=== PATIENT | male | born 1945 | race Two or more races ===

== ENCOUNTER 2017-04-17 06:54 | Inpatient (IN) | payer OTHER ==
[2017-04-14 11:15] VITALS: BMI 29.3
[2017-04-17] MEDS ORDERED: HEPARIN NA (PORCINE) 5,000 UNITS/ML 1ML VIAL ONE (07:19)
[2017-04-17] MEDS ORDERED: THROMBIN (BOVINE) 5,000 UNIT VIAL TP ONE ×2 (07:20→12:08)
[2017-04-17] MEDS ORDERED: PROPOFOL 20 ML ONE ×11 (07:52→12:06)
[2017-04-17] MEDS ORDERED: LIDOCAINE HCL/PF 2% SDV 5ML VIAL ONE (07:52)
[2017-04-17] MEDS ORDERED: fentaNYL CITRATE 250 MCG/5 ML VIAL ONE ×2 (07:52→09:16)
[2017-04-17] MEDS ORDERED: SUCCINYLCHOLINE CHLORIDE 200 MG/10 ML VIAL ONE (07:52)
[2017-04-17] MEDS ORDERED: ROCURONIUM BROMIDE 50 MG/5 ML VIAL ONE (07:53)
[2017-04-17] MEDS ORDERED: MIDAZOLAM HCL 2 MG/2 ML SINGLE DOSE VIAL ONE ×3 (07:53)
[2017-04-17] MEDS ORDERED: DESFLURANE GAS 240 ML BOTTLE IH ONE (09:39)
[2017-04-17] MEDS ORDERED: ceFAZolin SODIUM 1 GM VIAL ONE ×2 (09:48→13:30)
[2017-04-17] MEDS ORDERED: VANCOMYCIN 1,000 MG VIAL (RESTRICTED TO ID ONLY) ONE (09:48)
[2017-04-17] MEDS ORDERED: DEXAMETHASONE SOD PHOSPHATE 4 MG/1 ML VIAL ONE (09:48)
[2017-04-17] MEDS ORDERED: ONDANSETRON 4 MG/2 ML VIAL ONE (09:48)
[2017-04-17] MEDS ORDERED: ceFAZolin SODIUM 1 GM VIAL IVPB ONE (09:51)
[2017-04-17] MEDS ORDERED: VANCOMYCIN 1,000 MG VIAL (RESTRICTED TO ID ONLY) IVPB ONE (09:51)
[2017-04-17] MEDS ORDERED: ePHEDrine SULFATE 50 MG/1 ML AMPULE ONE (09:52)
[2017-04-17] MEDS ORDERED: FUROSEMIDE 40 MG/4 ML INJECTABLE VIAL ONE (13:03)
[2017-04-17] MEDS ORDERED: ONDANSETRON 4 MG/2 ML VIAL IVPUSH PRN ×2 (14:37→15:02)
[2017-04-17] MEDS ORDERED: LACTATED RINGERS SOLUTION 1,000 ML IV SCH (14:45)
--- NOTE | 2017-04-17 14:47 | PN ---
Progress Note (short form) - Note Progress Note: 71M s/p L4-S1 laminectomies & posterior decompression, L4/L5 &L5/S1 PLIF, L4-S1 PISF w/incidental durotomy POD #0. -Strict bed rest x 48 hrs post-op; HOB at 0 degrees. -Pain control. -Mechanical DVT PPx. only: MAXIME's, SCD's. -Incentive spirometry. -PT/OT/Rehab, OOB. -WBAT B/L UE & LE. -De Paz care; d/c de paz when ambulating. -NPO until flatus. -Rebecca-op antibiotics: ANCEF. -Admit to ICU. -Care per medical hospitalist team when out of ICU. -Will follow. César Whittaker MD (Orthopaedic Surgery).
[2017-04-17] MEDS ORDERED: HYDROmorphone HCL CARPU-JECT 1 MG/1 ML DISP.SYRIN IVPUSH PRN (15:02)
[2017-04-17] MEDS ORDERED: HYDROmorphone *PCA* 6MG/30ML DISP.SYRIN PCA ONE (15:39)
[2017-04-17] MEDS: HYDROmorphone *PCA* 6MG/30ML DISP.SYRIN PCA SCH ×2 (15:45→21:43)
[2017-04-17] MEDS: HYDROmorphone *PCA* 10MG/50ML DISP.SYRIN PCA SCH ×2 (15:45→21:40)
[2017-04-17] MEDS: ACETAMINOPHEN 1000 MG/100 ML VIAL (NON FORMULARY) IVPB SCH ×3 (15:50→22:40)
[2017-04-17] MEDS ORDERED: HYDROmorphone HCL CARPU-JECT 4 MG/1 ML DISP.SYRIN ONE (16:47)
[2017-04-17] MEDS ORDERED: ceFAZolin 2 GRAM PREMIX BAG IVPB SCH (18:00)
[2017-04-17] MEDS: CEFAZOLIN 2 GM/D5W 2 GM/50 ML ML IVPB SCH (18:37)
[2017-04-17] MEDS: LACTATED RINGERS SOLUTION 1,000 ML IV SCH (18:38)
--- NOTE | 2017-04-18 00:15 | CONSULT ---
Consult Consult Specialty:: Pulm Critical Care Referred by:: Dr. Whittaker Reason for Consultation:: s/p laminectomy - History of Present Illness Chief Complaint: lower back pain History of Present Illness: This is a 71 yo male w/ pmhx of spinal stenosis, HTN, HL, BPH, depression, Hyperparathyroidism s/p hyperparathyroidectomy(09/17/15), glaucoma and cataracts who is s/p L4-S1 laminectomies & posterior decompression, L4/L5 &L5/S1 PLIF, L4- S1 PISF w/incidental durotomy POD #0 (04/17/17) by Dr. Whittaker given h/o chronic lower back pain, neurogenic claudication and radiculopathy of b/l LEs, now admitted to ICU for further monitoring and management s/p procedure - History Source History Provided By: Patient, Medical Record Limitations to Obtaining History: No Limitations - Past Medical History [employer]: Yes: Other (chronic lumbar stenosis, neurogenic claudication, b/l LE radiculopathy). No: Alzheimer's, CVA, Dementia, Migraine, Multiple Sclerosis, Peripheral Neuropathy, Parkinson's, Seizure, Syncope, TIA, Vertigo Cardio/Vascular: Yes: HTN, Hyperlipdemia Pulmonary: Yes: Sleep Apnea Gastrointestinal: No: Ascites, Cancer, Constipation, Crohn's Disease, Diverticulitis, Diverticulosis, Esophageal Varices, Gastritis, GERD, GI Bleed, Hemorrhoids, Hiatal Hernia, Inflamatory Bowel Disease, Irritable Bowel Disease, Pancreatitis, Peptic Ulcer Disease, Ulcerative Colitis, Other Hepatobiliary: No: Cirrhosis, Cholelithiasis, Cholecystitis, Choledocholithiasis , Hepatitis A, Hepatitis B, Hepatitis C, Other Renal/: Yes: BPH. No: Renal Failure, Renal Inusuff, Cancer, Hematuria, Hemodialysis, Neurogenic Bladder, Renal Calculi, UTI, Other Heme/Onc: No: Anemia, B12 Deficiency, Bleeding Disorder, Cancer, Current Chemotherapy, Current Radiation Therapy, Hemochromatosis, Hypercoaguable State, Myeloproliferative Synd, Sickle Cell Disease, Sickle Cell Trait, Thrombocytopenia, Other Infectious Disease: No: AIDS, C-Diff, Herpes Zoster, HIV, MRSA, STD's, Tuberculosis, VREF, Other Psych: Yes: Depression. No: Addictions, Anxiety, Bipolar, Panic, Psychosis, Schizophrenia, Other Musculoskeletal: Yes: Chronic low back pain, Other (neurogenic claudication, radiculopathy) Rheumatology: No: Fibromyalgia, Gout, Lupus, Rheumatoid Arthritis, Sarcoidosis, Vasculitis, Other ENT: No: Allergic Rhinitis, Sinusitis, Other Endocrine: Yes: Hyperparathyroidism Dermatology: No: Basal Cell, Cellulitis, Eczema, Melanoma, Psoriasis, Squamous Cell, Other Additional Medical History: glaucoma, cataract - Past Surgical History Additional Surgical History: s/p parathyroidectomy - Alcohol/Substance Use Hx Alcohol Use: No History of Substance Use: reports: None - Smoking History Smoking history: Never smoked Have you smoked in the past 12 months: No - Social History Usual Living Arrangement: With Spouse ADL: Independent Occupation: retired History of Recent Travel: No Home Medications - Allergies Allergies/Adverse Reactions: Allergies Allergy/AdvReac Type Severity Reaction Status Date / Time oxycodone Allergy Intermediate ITCHY ALL Verified 04/14/17 11:15 OVER BODY - Home Medications Home Medications: Ambulatory Orders Finasteride 5 mg PO DAILY 04/14/17 Losartan Potassium 100 mg PO DAILY 04/14/17 Naproxen [Naprosyn] 500 mg PO PRN 04/14/17 Nifedipine [Procardia Xl] 90 mg PO DAILY 04/14/17 Rosuvastatin Calcium [Crestor] 10 mg PO DAILY 04/14/17 Family Disease History - Family Disease History Family History: Unremarkable Review of Systems - Review of Systems Constitutional: reports: No Symptoms Eyes: reports: No Symptoms HENT: reports: No Symptoms Neck: reports: No Symptoms Cardiovascular: reports: No Symptoms Respiratory: reports: No Symptoms Gastrointestinal: reports: No Symptoms Genitourinary: reports: No Symptoms Breasts: reports: No Symptoms Reported Musculoskeletal: reports: Back Pain Integumentary: reports: No Symptoms Neurological: reports: No Symptoms Endocrine: reports: No Symptoms Hematology/Lymphatic: reports: No Symptoms Psychiatric: reports: No Symptoms Pain Intensity: 0 Physical Exam Vital Signs: Vital Signs Temperature 98.9 F 04/17/17 22:00 Pulse Rate 99 H 04/17/17 22:00 Respiratory Rate 18 04/17/17 22:00 Blood Pressure 144/70 04/17/17 22:00 O2 Sat by Pulse Oximetry (%) 100 04/17/17 23:35 Constitutional: Yes: Well Nourished, No Distress, Calm Eyes: Yes: Conjunctiva Clear, EOM Intact, Cataracts HENT: Yes: WNL, Atraumatic, Normocephalic Neck: Yes: WNL, Supple, Trachea Midline Cardiovascular: Yes: WNL, Regular Rate and Rhythm Respiratory: Yes: WNL, Regular, CTA Bilaterally, On Nasal O2 Gastrointestinal: Yes: WNL, Normal Bowel Sounds, Soft ...Rectal Exam: Yes: Deferred Renal/: Yes: WNL, Joshua Present Breast(s): Yes: WNL Musculoskeletal: Yes: Back Pain Extremities: Yes: WNL Edema: No Peripheral Pulses WNL: Yes Integumentary: Yes: WNL Wound/Incision: Yes: Clean/Dry Neurological: Yes: WNL, Alert, Oriented ...Motor Strength: WNL Psychiatric: Yes: WNL Imaging - Results EKG: Report Reviewed (pre-op EKG NSR, no changes) Problem List - Problems (1) S/P laminectomy Code(s): Z98.890 - OTHER SPECIFIED POSTPROCEDURAL STATES (2) Glaucoma Code(s): H40.9 - UNSPECIFIED GLAUCOMA Qualifiers: Primary angle closure glaucoma type: unspecified type (3) HTN (hypertension) Code(s): I10 - ESSENTIAL (PRIMARY) HYPERTENSION Qualifiers: Hypertension type: unspecified Qualified Code(s): I10 - Essential (primary ) hypertension (4) Hyperlipemia Code(s): E78.5 - HYPERLIPIDEMIA, UNSPECIFIED (5) Chronic back pain Code(s): M54.9 - DORSALGIA, UNSPECIFIED; G89.29 - OTHER CHRONIC PAIN Qualifiers: Back pain location: low back pain Back pain laterality: bilateral Sciatica presence: unspecified whether sciatica present Qualified Code(s): M54.5 - Low back pain; G89.29 - Other chronic pain; G89.29 - Other chronic pain (6) Sleep apnea syndrome Code(s): G47.30 - SLEEP APNEA, UNSPECIFIED Assessment/Plan This is a 71 yo male w/ pmhx of spinal stenosis, HTN, HL, BPH, depression, Hyperparathyroidism s/p hyperparathyroidectomy(09/17/15), glaucoma and cataracts who is s/p L4-S1 laminectomies & posterior decompression, L4/L5 &L5/S1 PLIF, L4- S1 PISF w/incidental durotomy POD #0 (04/17/17) by Dr. Whittaker given chronic lower back pain, neurogenic claudication and radiculopathy of b/l LEs, now admitted to ICU for further monitoring and management s/p procedure. -Strict bed rest x 48 hrs post-op; keep HOB flat -Pain management with Dilaudid COAL UNLOADER, and IVP PRN -WBAT B/L UE & LE -NPO until flatus -Cont Rebecca-op abx Ancef -supplemental O2 -CPAP at night for sleep apnea -IS -TEDs and SCDs -PT/OT/Rehab, OOB -d/c baldev when ambulating -Cont home nifedipine for HTN Stacia Headley, ACNP-BC Pulm Critical Care Consult
[2017-04-18] MEDS: CEFAZOLIN 2 GM/D5W 2 GM/50 ML ML IVPB SCH ×2 (02:00→10:39)
[2017-04-18] MEDS: ACETAMINOPHEN 1000 MG/100 ML VIAL (NON FORMULARY) IVPB SCH (06:07)
--- NOTE | 2017-04-18 06:22 | OP ---
DATE OF OPERATION: 04/17/2017 SURGEON: César Whittaker MD CO-SURGEON: Benitez Whittaker MD PREOPERATIVE DIAGNOSES: 1. Spinal stenosis, L4-5. 2. Spondylolisthesis, L4-5 with segmental instability. POSTOPERATIVE DIAGNOSES: 1. Spinal stenosis, L4-5. 2. Spondylolisthesis, L4-5 with segmental instability. OPERATION PERFORMED: 1. Laminectomy with undercutting facetectomy, L4 and L5. 2. Incidental dural tear and repair at the L4-5 level. 3. Partial corpectomy, L4. 4. Posterior lumbar interbody fusion with cage, L4-5, L5-S1. 5. Pedicle screw instrumentation, L4, L5, S1. 6. Posterolateral arthrodesis, L4, L5, S1. 7. Bone marrow aspirate concentrate with autologous bone graft and allograft expansion. 8. Complex wound closure. This measured 15 cm. ANESTHESIA: General. ANTIBIOTICS GIVEN: Kefzol 2 g, vancomycin 1 g preoperative. OPERATION DETAILS: The patient correctly identified, brought to the operating room, placed prone on gel pads. All areas were padded. The pelvis was kept in as little retroversion as possible; that is that the lumbosacral junction, the lordosis was maintained. Skin was prepped in routine manner with Betadine scrub solution and wiped off with alcohol. DuraPrep applied. A midline incision was utilized after window draping of the wound area. A preoperative assessment where the skin incision needed to be made was performed. This with lateral fluoroscopic x-ray and Hurley holding exactly the levels for dissection. The skin was from the tip of the spinous process of L3 right to S1. Subperiosteal dissection performed, exposing the spinous process and lamina over the facet joints of the transverse plexus of the left- and right-hand side. Verification of the levels with two Kochers placed into the interspinous process at L3-4 as well as L5-S1. With that, all the bone of L4-5 was removed. This was hypertrophic, thickened bone from massive osteoarthritis including massive facet hypertrophy. All bone was removed. The dura remained well intact throughout this part of the dissection. The disk at L5-S1 was identified on the right-hand side using bipolar set at 10 mA. The epidural veins were diathermied. The dura and theca retracted from right to left. An annulotomy performed with an 11 blade. The disk was then shaved appropriately, this with the appropriate yanira as well as use of serrated curettes combined with pituitary rongeurs. All disk material was removed out of L5-S1. Shaving was to size 11, and a size 12 cage was inserted; this was a porous-coated cage and device filled with bone graft. The interbody space L5-S1 was packed with bone graft, and the cage was then seated. The cage itself was packed with bone graft. We moved up proximally to L4-5. It was impossible to gain entrance to L4-5; that is the cage, and as a partial corpectomy was performed. The theca was gently retracted. The dura was adherent to the anterior structures, and these adhesions were broken with a slow, meticulous trimming of these with using a [place] as well as Metzenbaum scissors to free these adhesions as we went along. The theca was relatively free. The corpectomy enabled us access to the actual disk. This was a partial corpectomy and slanted chamfer onto the body of L4. The disk was entered with a shaver. Shaving was to size 10, and a size 11 cage was also inserted. The interspace was packed with bone graft. This was all the bone that was harvested from the posterior elements, that is from the laminectomy, all removed in a Midas Hans mill as was at L5-S1. Solid fixation achieved. Verification of the cages revealed no complications both at L4-5 as well as L5-S1. It was at the time of trimming out some of the annulus that in pulling down on the tissues, this was transmitted to the back of the theca where there was scar adherence of the dura onto the posterior elements, and a small tear occurred. This was anterior. The only way to repair this was a transthecal approach. I elected not to do this because of the concern of arachnoiditis, but we did manage to get this sealed up with some Surgicel combined with fibrin glue that was sandwiched between the posterior longitudinal ligament and the anterior aspect of the theca. No drainage was noted once this had been performed. The pedicles of L4, L5, S1 were entered using anatomical guidelines as well as a lateral fluoroscopic x-ray. The screws directed appropriately. Each screw measured well above the safe area, that is well above 17 mA for one screw, and the rest were all well above 20. Two 65-mm rods were contoured and placed into the screw heads, and the caps tightened appropriately, followed with a torque wrench device. A crosslink applied. The wounds were thoroughly lavaged. Bone graft from the autologous bone as well as mixed with allograft. This was all mixed with stem cells that were harvested from the posterior ilium as a bone marrow aspirate concentrate and packed into the interspace at L4, L5, S1, both left- and right-hand side. The wounds were thoroughly lavaged. No bone was left on the theca. The dura was inspected again, found to be normal, bulging, and no leakage noted. On that basis, we then went ahead and elected to close the tissues. The muscle was gently trimmed from necrotic muscle. This was minor, using the retractors. The wounds were closed as follows: Muscle 1 Vicryl, fascia 1 Vicryl, subcutaneous 1 and 2-0 Vicryl, skin 3-0 Monocryl with Steri-Strips. Major concern here remains with regard to the dura, and he will be observed and followed in the ICU and kept 72 hours bedrest with foot elevation to decrease the pressure in the thecal sac caudally. MD CISCO Cavanaugh/[id number]
[2017-04-18 06:51] LABS: ANION GAP 8 (8-16); BLOOD UREA NITROGEN 19 mg/dL (7-18); CALCIUM 7.9 mg/dL (8.5-10.1); CHLORIDE 101 mmol/L (98-107); CO2 32 mmol/L (21-32); GLUCOSE,RANDOM 120 mg/dL (74-106); POTASSIUM 3.7 mmol/L (3.5-5.1); SODIUM 141 mmol/L (136-145)
[2017-04-18 07:53] LABS: HEMATOCRIT 36.2 % (35.4-49); HEMOGLOBIN 11.9 GM/dL (11.7-16.9); MCH 30.7 pg (25.7-33.7); MCHC 32.8 g/dl (32.0-35.9); MEAN CELL VOLUME 93.8 fl (80-96); PLATELET COUNT 237 K/MM3 (134-434); RBC 3.86 M/mm3 (4.00-5.60); RDW 15.3 % (11.9-15.9); WHITE BLOOD COUNT 19.6 K/mm3 (4.0-10.0)
--- NOTE | 2017-04-18 08:07 | PN ---
Progress Note, Physician History of Present Illness: This is a 71 yo male h/o spinal stenosis, HTN, HL, BPH, depression, Hyperparathyroidism s/p hyperparathyroidectomy(09/17/15), glaucoma and cataracts who is s/p L4-S1 laminectomies & posterior decompression, L4/L5 &L5/S1 PLIF, L4- S1 PISF w/incidental durotomy POD #0 (04/17/17) by Dr. Whittaker given h/o chronic lower back pain, neurogenic claudication and radiculopathy of BLE, now admitted to ICU for further monitoring and management s/p procedure 24 Hour Events Patient was on ventimask with desaturations overnight while sleeping laying flat. CPAP ordered with improvement. Patient with indwelling Joshua, PIV, on Joshua to gravity,adequate urine Skin warm,dry,dressing to back intact,SCD and TEDS in place Subjective Intake/Output In: 3475cc Out: 1900cc Net: 1575cc BM: None reported - Current Medication List Current Medications: Active Medications Finasteride (Proscar -) 5 mg PO DAILY JARROD Hydromorphone HCl (Dilaudid Injection -) 0.5 mg IVPUSH [id number] PRN PRN Reason: PAIN-PACU ORDER X 4 DOSES ONLY Hydromorphone HCl (Dilaudid Master Rigger -) 6 mg CUPROUS CHLORIDE OPERATOR CUPROUS CHLORIDE OPERATOR JARROD PRN Reason: Protocol Stop: 04/20/17 15:03 Last Admin: 04/17/17 21:43 Dose: Not Given Lactated Ringer's (Lactated Ringers Solution) 1,000 mls @ 125 mls/hr IV ASDIR [facility] Last Admin: 04/17/17 18:38 Dose: 125 mls/hr Cefazolin Sodium/Dextrose (Ancef 2 Gm Premixed Ivpb -) 2 gm in 50 mls @ 100 mls /hr IVPB Q8H [facility] Stop: 04/18/17 10:29 Last Admin: 04/18/17 02:00 Dose: 100 mls/hr Losartan Potassium (Cozaar -) 100 mg PO DAILY JARROD Nifedipine (Procardia Xl -) 90 mg PO DAILY JARROD Ondansetron HCl (Zofran Injection) 4 mg IVPUSH Q6H PRN PRN Reason: NAUSEA AND/OR VOMITING - Objective Vital Signs: Vital Signs Temperature 98.4 F 04/18/17 06:12 Pulse Rate 87 04/18/17 07:31 Respiratory Rate 16 04/18/17 07:31 Blood Pressure 126/68 04/18/17 07:31 O2 Sat by Pulse Oximetry (%) 98 04/18/17 05:35 Constitutional: Yes: Well Nourished, No Distress, Calm, Other (laying flat in bed and attempting to stay very still, moans in pain with repositioning, Monegasque -speaking, answering questions appropriately) Eyes: Yes: WNL, Conjunctiva Clear, EOM Intact, Other (mild exophthalmos stated unchanged from baseline) HENT: Yes: WNL, Atraumatic, Normocephalic Neck: Yes: WNL, Supple, Trachea Midline Cardiovascular: Yes: WNL, Regular Rate and Rhythm Respiratory: Yes: WNL, Regular, CTA Bilaterally Gastrointestinal: Yes: WNL, Normal Bowel Sounds, Soft Genitourinary: Yes: WNL, Joshua Present Musculoskeletal: Yes: Back Pain Extremities: Yes: Other (mild right knee tenderness to palpation stated chronic) . No: Calf Tenderness, Cold, Cool, Cyanosis Edema: No Peripheral Pulses: Left Doralis Pedis: 2+, Right Dorsalis Pedis: 2+ Integumentary: Yes: WNL. No: Erythema, Jaundice Neurological: Yes: WNL, Alert, Oriented ...Motor Strength: WNL Psychiatric: Yes: WNL, Alert, Oriented Labs: CBC, BMP 04/18/17 05:47 04/18/17 05:47 Assessment/Plan This is a 71 yo male with h/o of lumbar spinal stenosis, neurogenic claudication , BLE radiculopathy, HTN, HLD, BPH, depression, hyperparathyroidism s/p hyperparathyroidectomy (09/17/15), YAEL on CPAP, glaucoma, cataracts, and depression who is s/p L4-S1 laminectomies & posterior decompression, L4/L5 & L5/ S1 PLIF, L4-S1 PISF w/incidental durotomy POD #1 (04/17/17) by Dr. Whittaker. Given Ancef perioperatively. NEURO #S/P Lumbar laminectomy, posterior decompression -Strict bedrest with HOB flat until 48 hrs after surgery -Dilaudid CUPROUS CHLORIDE OPERATOR, IVP prn -Continue perioperative Ancef -Continue Joshua until ambulatory -WBAT BLE and BUE after bedrest period CARDIOLOGY #HTN -Continue home nifedipine, losartan #HLD RESPIRATORY #Obstructive Sleep Apnea. Patient seen with apnea when observed sleeping -CPAP at night -Formal sleep study -Supplemental O2 FEN/GI -NPO until flatus -IVF (LR) at 125 cc/hr PPX -MAXIME's, SCD's. -Incentive spirometry. -PT/OT/Rehab, OOB. Lines/Tubes/Drains -Joshua: placed 04/17 -PIV: placed 04/17
--- NOTE | 2017-04-18 08:10 | PN ---
Progress Note, Physician Chief Complaint: Pt is day #1 s/p L4-S2 PLIF - Current Medication List Current Medications: Active Medications Finasteride (Proscar -) 5 mg PO DAILY JARROD Hydromorphone HCl (Dilaudid Injection -) 0.5 mg IVPUSH [id number] PRN PRN Reason: PAIN-PACU ORDER X 4 DOSES ONLY Hydromorphone HCl (Dilaudid Group Segment Consultant -) 6 mg PODIATRY DOCTOR PODIATRY DOCTOR JARROD PRN Reason: Protocol Stop: 04/20/17 15:03 Last Admin: 04/17/17 21:43 Dose: Not Given Lactated Ringer's (Lactated Ringers Solution) 1,000 mls @ 125 mls/hr IV ASDIR [facility] Last Admin: 04/17/17 18:38 Dose: 125 mls/hr Cefazolin Sodium/Dextrose (Ancef 2 Gm Premixed Ivpb -) 2 gm in 50 mls @ 100 mls /hr IVPB Q8H [facility] Stop: 04/18/17 10:29 Last Admin: 04/18/17 02:00 Dose: 100 mls/hr Losartan Potassium (Cozaar -) 100 mg PO DAILY JARROD Nifedipine (Procardia Xl -) 90 mg PO DAILY JARROD Ondansetron HCl (Zofran Injection) 4 mg IVPUSH Q6H PRN PRN Reason: NAUSEA AND/OR VOMITING - Objective Vital Signs: Vital Signs Temperature 98.4 F 04/18/17 06:12 Pulse Rate 87 04/18/17 07:31 Respiratory Rate 16 04/18/17 07:31 Blood Pressure 126/68 04/18/17 07:31 O2 Sat by Pulse Oximetry (%) 98 04/18/17 05:35 Labs: CBC, BMP 04/18/17 05:47 04/18/17 05:47 Assessment/Plan Pt is resting in bed comfortably. He has pain which is tolerable when he uses his PODIATRY DOCTOR. Will continue with PODIATRY DOCTOR at current settings for now
[2017-04-18] MEDS ORDERED: LOSARTAN POTASSIUM 100 MG TABLET PO SCH (10:00)
[2017-04-18] MEDS ORDERED: PT OWN MED DRAWER 7, Y5N ONE (10:27)
[2017-04-18] MEDS: FINASTERIDE 5 MG TABLET (FP) PO SCH (10:38)
[2017-04-18] MEDS: LOSARTAN POTASSIUM 50 MG TABLET (FP) PO SCH (10:39)
[2017-04-18] MEDS: NIFEdipine E.R. 90 MG TABLET (FP) PO SCH (10:39)
--- NOTE | 2017-04-18 12:57 | EKG ---
Test Reason : Blood Pressure : / mmHG Vent. Rate : 094 BPM Atrial Rate : 094 BPM P-R Int : 206 ms QRS Dur : 096 ms QT Int : 356 ms P-R-T Axes : 067 004 101 degrees QTc Int : 445 ms SINUS RHYTHM WITH OCCASIONAL PREMATURE VENTRICULAR COMPLEXES T WAVE ABNORMALITY, CONSIDER LATERAL ISCHEMIA ABNORMAL ECG Confirmed by Lemuel Guzman MD ([id number]) on 04/18/2017 12:57:06 PM Referred By: César Whittaker Confirmed By:Lemuel Guzman MD
[2017-04-18] MEDS: LACTATED RINGERS SOLUTION 1,000 ML IV SCH (22:04)
[2017-04-18] MEDS: HYDROmorphone *PCA* 6MG/30ML DISP.SYRIN PCA SCH (22:05)
--- NOTE | 2017-04-19 03:42 | PN ---
Progress Note (short form) - Note Progress Note: Pt. seen & examined 04/18/2017 at 7pm. 71M s/p L4-S1 laminectomies & posterior decompression, L4/L5 &L5/S1 PLIF, L4-S1 PISF w/incidental durotomy POD #1. Pain well controlled. (-) Headaches, chest pain, shortness of breath, nausea, vomiting, chills, & sweats. (+) De Paz; (-) Flatus; (-) BM. All labs & vitals reviewed. Apyrexia. PE: AAO x 3, NAD. Back: Wound, dressing C/D/I. B/L LE sensorimotor status at baseline. 71M s/p L4-S1 laminectomies & posterior decompression, L4/L5 &L5/S1 PLIF, L4-S1 PISF w/incidental durotomy POD #1. -Strict bed rest x 48 hrs post-op; HOB at 0 degrees. -Pain control. -Mechanical DVT PPx. only: MAXIME's, SCD's. -Incentive spirometry. -De Paz care; d/c de paz when ambulating. -NPO until flatus. -Care per ICU team; care per medical hospitalist team when out of ICU. -Will follow. César Whittaker MD (Orthopaedic Surgery).
[2017-04-19 07:05] LABS: HEMATOCRIT 35.6 % (35.4-49); HEMOGLOBIN 11.6 GM/dL (11.7-16.9); MCH 30.4 pg (25.7-33.7); MCHC 32.6 g/dl (32.0-35.9); MEAN CELL VOLUME 93.4 fl (80-96); PLATELET COUNT 205 K/MM3 (134-434); RBC 3.81 M/mm3 (4.00-5.60); RDW 15.3 % (11.9-15.9); WHITE BLOOD COUNT 22.4 K/mm3 (4.0-10.0)
[2017-04-19 07:59] LABS: CHLORIDE 101 mmol/L (98-107); POTASSIUM 3.9 mmol/L (3.5-5.1); SODIUM 141 mmol/L (136-145)
[2017-04-19 08:07] LABS: ALBUMIN 2.9 g/dl (3.4-5.0); ALK PHOS 49 U/L (45-117); ANION GAP 8 (8-16); BILIRUBIN,TOTAL 0.6 mg/dL (0.2-1.0); BLOOD UREA NITROGEN 15 mg/dL (7-18); CALCIUM 7.3 mg/dL (8.5-10.1); CO2 32 mmol/L (21-32); CREATININE 0.8 mg/dL (0.7-1.3); GLUCOSE,RANDOM 103 mg/dL (74-106); MAGNESIUM 2.2 mg/dL (1.8-2.4); PHOSPHOROUS 2.6 mg/dL (2.5-4.9); SGOT/AST 78 U/L (15-37); SGPT/ALT 24 U/L (12-78); TOT PROT 6.1 g/dl (6.4-8.2)
[2017-04-19] MEDS ORDERED: PT OWN MED DRAWER 7, Y5N ONE (09:34)
[2017-04-19] MEDS: LOSARTAN POTASSIUM 50 MG TABLET (FP) PO SCH (09:43)
[2017-04-19] MEDS: NIFEdipine E.R. 90 MG TABLET (FP) PO SCH (09:43)
[2017-04-19] MEDS: FINASTERIDE 5 MG TABLET (FP) PO SCH (09:43)
--- NOTE | 2017-04-19 12:54 | PN ---
Progress Note, Physician Chief Complaint: Pt. pain controlled with NATIONAL ACCOUNTS RECRUITER, on complaints. - Current Medication List Current Medications: Active Medications Finasteride (Proscar -) 5 mg PO DAILY [facility] Last Admin: 04/19/17 09:43 Dose: 5 mg Hydromorphone HCl (Dilaudid Injection -) 0.5 mg IVPUSH [id number] PRN PRN Reason: PAIN-PACU ORDER X 4 DOSES ONLY Hydromorphone HCl (Dilaudid Laser Engraver -) 6 mg NATIONAL ACCOUNTS RECRUITER NATIONAL ACCOUNTS RECRUITER [facility] PRN Reason: Protocol Stop: 04/20/17 15:03 Last Admin: 04/18/17 22:05 Dose: Not Given Lactated Ringer's (Lactated Ringers Solution) 1,000 mls @ 125 mls/hr IV ASDIR [facility] Last Admin: 04/18/17 22:04 Dose: Not Given Losartan Potassium (Cozaar -) 100 mg PO DAILY [facility] Last Admin: 04/19/17 09:43 Dose: 100 mg Nifedipine (Procardia Xl -) 90 mg PO DAILY [facility] Last Admin: 04/19/17 09:43 Dose: 90 mg Ondansetron HCl (Zofran Injection) 4 mg IVPUSH Q6H PRN PRN Reason: NAUSEA AND/OR VOMITING - Objective Vital Signs: Vital Signs Temperature 98.6 F 04/19/17 10:00 Pulse Rate 96 H 04/19/17 12:00 Respiratory Rate 16 04/19/17 12:00 Blood Pressure 148/72 04/19/17 12:00 O2 Sat by Pulse Oximetry (%) 93 L 04/19/17 11:20 Constitutional: Yes: Well Nourished, No Distress, Calm Musculoskeletal: Yes: WNL Neurological: Yes: WNL, Alert, Oriented Labs: CBC, BMP 04/19/17 06:45 04/19/17 06:45 Assessment/Plan POD#2 s/p L4-S1 PLIF under GA. Pain controlled with NATIONAL ACCOUNTS RECRUITER. Doing well. Continue NATIONAL ACCOUNTS RECRUITER
--- NOTE | 2017-04-19 12:57 | PN ---
Teaching Attending Note Name of Resident: Clare Mohan ATTENDING PHYSICIAN STATEMENT I saw and evaluated the patient. I reviewed the resident's note and discussed the case with the resident. I agree with the resident's findings and plan as documented. SUBJECTIVE: Pt seen and examined in the ICU. Still with significant pain. No headache, nausea or vomiting. c/o some leg weakness. No fevers or chills. OBJECTIVE: Last Vital Signs Temp Pulse Resp BP Pulse Ox 98.6 F 96 H 16 148/72 93 L 04/19/17 10:00 04/19/17 12:00 04/19/17 12:00 04/19/17 12:00 04/19/17 11:20 Intake & Output 04/16/17 04/17/17 04/18/17 04/19/17 23:59 23:59 23:59 23:59 Intake Total 3475 1800 1500 Output Total 1900 2100 900 Balance 1575 -300 600 Weight 87.543 kg Gen: NAD at rest Heart: RRR Lung: decreased breath sounds at the bases, scattered rhonchi Abd: soft, nontender Ext: no edema CBC, BMP 04/19/17 06:45 04/19/17 06:45 Active Medications Finasteride (Proscar -) 5 mg PO DAILY [facility] Last Admin: 04/19/17 09:43 Dose: 5 mg Hydromorphone HCl (Dilaudid Injection -) 0.5 mg IVPUSH [id number] PRN PRN Reason: PAIN-PACU ORDER X 4 DOSES ONLY Hydromorphone HCl (Dilaudid Siebel Developer -) 6 mg FERMENTING CELLARS SUPERVISOR FERMENTING CELLARS SUPERVISOR [facility] PRN Reason: Protocol Stop: 04/20/17 15:03 Last Admin: 04/18/17 22:05 Dose: Not Given Lactated Ringer's (Lactated Ringers Solution) 1,000 mls @ 125 mls/hr IV ASDIR [facility] Last Admin: 04/18/17 22:04 Dose: Not Given Losartan Potassium (Cozaar -) 100 mg PO DAILY [facility] Last Admin: 04/19/17 09:43 Dose: 100 mg Nifedipine (Procardia Xl -) 90 mg PO DAILY [facility] Last Admin: 04/19/17 09:43 Dose: 90 mg Ondansetron HCl (Zofran Injection) 4 mg IVPUSH Q6H PRN PRN Reason: NAUSEA AND/OR VOMITING ASSESSMENT AND PLAN: Spinal Stenosis s/p L4-S1 Laminectomies/Posterior Decompression/Fusion/Incidental Durotomy 04/17 Obstructive Sleep Apnea HTN Hyperlipidemia Hyperparathyroidism s/p Hyperparathyroidectomy - pain control - incentive spirometry - CPAP at night if pt allows - IVF - outpt PSG - PO/de paz/activity/DVT prophylaxis per surgery
--- NOTE | 2017-04-19 14:24 | PN ---
Physical Exam: SUBJECTIVE: Sinhala speaking, used nurse staff. Patient seen and examined at bed side this morning. Complaining of back pain. Numbness and tingling sensation on b/l feet. Denies chest pain, palpitation, abdominal pain, nausea or vomiting. No acute overnight events. As per RN, patient forgets to use DIRECTOR CALL pump and has to be reminded. OBJECTIVE: Vital Signs Period Temp Pulse Resp BP Sys/Cole Pulse Ox Last 24 Hr 98.2 F-98.9 F 80-135 12-16 115-154/58-81 92-99 GENERAL: The patient is drowsy likely due to Dilaudid, awake, complaints of back pain, pain in b/l feet, venti mask . HEAD: Normal with no signs of trauma. SUPINE position EYES: EOM intact, no pallor or icterus. ENT: Ears normal, nares patent, oropharynx clear without exudates, dry mucous membranes. NECK: Trachea midline, full range of motion, supple. LUNGS: B/L coarse breath sounds bilaterally, crackles on the RUL, no accessory muscle use. HEART: Tachycardic, Regular rate and rhythm, S1, S2 without murmur. ABDOMEN: Soft, nontender, nondistended, normoactive bowel sounds, no guarding, no rebound, no hepatosplenomegaly, no masses. EXTREMITIES: 2+ pulses, warm, well-perfused, no edema. NEUROLOGICAL: No facial droop, sensation intact in all extremities bilaterally, pain in b/l foot on movement, has more back pain while he bends his knees. Normal speech, gait not observed. PSYCH: Normal mood, normal affect. SKIN: Warm, dry, normal turgor, no rashes or lesions noted Laboratory Results - last 24 hr 04/19/17 04/19/17 06:45 06:45 WBC 22.4 H RBC 3.81 L Hgb 11.6 L Hct 35.6 MCV 93.4 MCH 30.4 MCHC 32.6 RDW 15.3 Plt Count 205 MPV 9.0 Sodium 141 Potassium 3.9 Chloride 101 Carbon Dioxide 32 Anion Gap 8 BUN 15 D Creatinine 0.8 Creat Clearance w eGFR > 60 Random Glucose 103 Calcium 7.3 L Phosphorus 2.6 Magnesium 2.2 Total Bilirubin 0.6 AST 78 H ALT 24 Alkaline Phosphatase 49 Total Protein 6.1 L Albumin 2.9 L Active Medications Generic Name Dose Route Start Last Admin Trade Name Freq PRN Reason Stop Dose Admin Finasteride 5 mg 04/18/17 10:00 04/19/17 09:43 Proscar - PO 5 mg DAILY JARROD Administration Hydromorphone HCl 0.5 mg 04/17/17 15:02 Dilaudid Injection - IVPUSH [id number] PRN PAIN-PACU ORDER X 4 DOSES ONLY Hydromorphone HCl 6 mg 04/17/17 16:26 04/18/17 22:05 Dilaudid Film Coater - DIRECTOR CALL 04/20/17 15:03 Not Given DIRECTOR CALL JARROD Protocol Lactated Ringer's 1,000 mls @ 125 mls/hr 04/17/17 15:15 04/18/17 22:04 Lactated Ringers Solution IV Not Given ASDIR JARROD CEFTRIAXONE 1 G/50 ML PREMIX 50 mls @ 100 mls/hr 04/19/17 14:30 Ceftriaxone 1 Gm-D5w Bag IVPB DAILY JARROD Losartan Potassium 100 mg 04/18/17 10:00 04/19/17 09:43 Cozaar - PO 100 mg DAILY JARROD Administration Nifedipine 90 mg 04/18/17 10:00 04/19/17 09:43 Procardia Xl - PO 90 mg DAILY JARROD Administration Ondansetron HCl 4 mg 04/17/17 15:02 Zofran Injection IVPUSH Q6H PRN NAUSEA AND/OR VOMITING ASSESSMENT/PLAN: Patient is a 71 year old male with h/o of lumbar spinal stenosis, neurogenic claudication, BLE radiculopathy, HTN, HLD, BPH, depression, hyperparathyroidism s/p hyperparathyroidectomy (09/17/15), YAEL on CPAP, glaucoma, cataracts, and depression who is s/p L4-S1 laminectomies & posterior decompression, L4/L5 & L5/ S1 PLIF, L4-S1 PISF w/incidental durotomy POD # 2 (04/17/17) by Dr. Whittaker. # Neurology Drowsy likely secondary to Dilaudid use. Numbness and tingling sensation of b/l feet, likely related to his spinal surgery. L4-S1 laminectomies & posterior decompression, L4/L5 & L5/S1 PLIF, L4-S1 PISF w/incidental durotomy POD # 2 (04/17/17) by Dr. Whittaker. Pain control with DIRECTOR CALL pump, pt says he forgets to use DIRECTOR CALL Zofran for nausea No other active issues # Respiratory RUL consolidation- Blood cultures, urine cultures ordered stat. Started IV Ceftriaxone 1gm daily started on 04/19/2017 Leukocytosis 19.6 ---> 22. 4 likely reactive vs due to developing PNA. Patient has to be in supine position for 48 hrs, encouraging Incentive Spirometer use, continue Venti mask PRN. # Cardiology Hypertension: Controlled Continue Losartan 100mg PO daily and Nifedipine 90mg # Endocrine-no active issues # FEN IV LR @ 125 mls/hr Electrolytes WNL NPO # Prophylaxis For DVT: On Scds, Heparin sq TID as per Dr. Whittaker For GI: IV Protonix 40mg Daily. # Code Status: Full Code # Dispo: Admitted in ICU. Duration of stay unknown. Illness, Investigation and Plan of care explained to the patient in Sinhala. He verbalized understanding. Case discussed with Dr. Styels. Visit type - Emergency Visit Emergency Visit: Yes ED Registration Date: 04/17/17 Care time: The patient presented to the Emergency Department on the above date and was hospitalized for further evaluation of their emergent condition. - New Patient This patient is new to me today: No - Critical Care Critical Care patient: Yes Total Critical Care Time (in minutes): 45 Critical Care Statement: The care of this patient involved high complexity decision making to prevent further life threatening deterioration of the patient 's condition and/or to evaluate & treat vital organ system(s) failure or risk of failure.
--- NOTE | 2017-04-19 16:50 | PN ---
Progress Note (short form) - Note Progress Note: 71M s/p L4-S1 laminectomies & posterior decompression, L4/L5 &L5/S1 PLIF, L4-S1 PISF w/incidental durotomy POD #2. Pain well controlled. (-) Headaches, chest pain, nausea, vomiting, chills, & sweats. (+) Mild shortness of breath. (+) De Paz; (-) Flatus; (-) BM. All labs & vitals reviewed. Apyrexia. PE: AAO x 3, NAD. Back: Wound, dressing C/D/I. B/L LE sensorimotor status at baseline. B/L LE M: Muscles supplying B/L hips, knees, ankles, hindfeet, midfeet, and forefeet are intact. B/L LE S: L2-S1 2/2. B/L LE V: BCR <3 sec, WWP x 5. 71M s/p L4-S1 laminectomies & posterior decompression, L4/L5 &L5/S1 PLIF, L4-S1 PISF w/incidental durotomy POD #2. -Continue strict bed rest; HOB at 0 degrees. -Pain control. -Mechanical DVT PPx. only: MAXIME's, SCD's. -Incentive spirometry. -De Paz care; d/c de paz when ambulating. -NPO until flatus. -Care per ICU team; care per medical hospitalist team when out of ICU. -Will follow. Benitez Whittaker MD (Orthopaedic Surgery).
--- NOTE | 2017-04-19 17:01 | PATH ---
Surgical Pathology Report Patient Name: NIESHA JEFFERS [facility]. Rec. #: [id number] /Age/Gender: 1945 (Age: 71) / M Account: [id number] [facility] Taken: 04/17/2017 Received: 04/18/2017 Reported: 04/19/2017 Physicians: César Whittaker M.D. Specimen(s) Received DISC L4-S1 Clinical History Chronic lumbar spinal stenosis Final Diagnosis L4-S1 DISC, LUMBAR INTERBODY FUSION: INTERVERTEBRAL DISC TISSUE. Electronically Signed Tete Anderson M.D. Gross Description Received in formalin labeled "L4-S1 disc," is a 4.0 x 3.3 x 0.4 cm aggregate of quinones fragments of fibrocartilaginous tissue. A lead generation representative portion is submitted in one cassette. /04/18/201704/18/2017
[2017-04-19] MEDS: PANTOPRAZOLE SODIUM 40 MG VIAL IVPUSH SCH (17:16)
[2017-04-19] MEDS: CEFTRIAXONE 1 G/50 ML PREMIX 50 ML IVPB SCH (17:16)
[2017-04-19] MEDS: HYDROmorphone *PCA* 6MG/30ML DISP.SYRIN PCA SCH ×3 (19:43→21:48)
[2017-04-19] MEDS: LACTATED RINGERS SOLUTION 1,000 ML IV SCH (21:45)
[2017-04-20] MEDS: HYDROmorphone *PCA* 6MG/30ML DISP.SYRIN PCA SCH (06:06)
--- NOTE | 2017-04-20 07:38 | PN ---
Progress Note, Physician History of Present Illness: 24 Hour Events: Possible RUL consolidation, WBC increasing, ceftriaxone started. BCx and UCx pending. Patient pulling off BiPAP, refusing AM labs, refusing AM care. Eventually agrees. Dr. Benitez Whittaker saw patient yesterday PM. He will be in to round on the patient this evening as well. One 5 min episode of SVT this morning which resolved spontaneously. Subjective: Patient notes pain with repositioning similar to yesterday. Numbness and tingling to BLE which is unchanged from yesterday. Intake/Output: In: 2125cc Out: 3600cc Net: -1475cc BM: None - Current Medication List Current Medications: Active Medications Finasteride (Proscar -) 5 mg PO DAILY [facility] Last Admin: 04/19/17 09:43 Dose: 5 mg Hydromorphone HCl (Dilaudid Injection -) 0.5 mg IVPUSH [id number] PRN PRN Reason: PAIN-PACU ORDER X 4 DOSES ONLY Hydromorphone HCl (Dilaudid Real Estate Subagent -) 6 mg DROP HAMMER SETTER UP DROP HAMMER SETTER UP JARROD PRN Reason: Protocol Stop: 04/20/17 15:03 Last Admin: 04/20/17 06:06 Dose: 6 mg Lactated Ringer's (Lactated Ringers Solution) 1,000 mls @ 125 mls/hr IV ASDIR [facility] Last Admin: 04/19/17 21:45 Dose: 125 mls/hr CEFTRIAXONE 1 G/50 ML PREMIX (Ceftriaxone 1 Gm-D5w Bag) 50 mls @ 100 mls/hr IVPB DAILY [facility] Last Admin: 04/19/17 17:16 Dose: 100 mls/hr Losartan Potassium (Cozaar -) 100 mg PO DAILY [facility] Last Admin: 04/19/17 09:43 Dose: 100 mg Nifedipine (Procardia Xl -) 90 mg PO DAILY [facility] Last Admin: 04/19/17 09:43 Dose: 90 mg Ondansetron HCl (Zofran Injection) 4 mg IVPUSH Q6H PRN PRN Reason: NAUSEA AND/OR VOMITING Pantoprazole Sodium (Protonix Iv) 40 mg IVPUSH DAILY [facility] Last Admin: 04/19/17 17:16 Dose: 40 mg - Objective Vital Signs: Vital Signs Temperature 98.1 F 04/20/17 02:00 Pulse Rate 90 04/20/17 06:00 Respiratory Rate 17 04/20/17 06:00 Blood Pressure 166/83 04/20/17 06:00 O2 Sat by Pulse Oximetry (%) 96 04/20/17 00:26 Constitutional: Yes: Well Nourished, Other (no distress while laying flat but yells in pain when repositioned) Eyes: Yes: Conjunctiva Clear, EOM Intact, Other (exophthalmos) HENT: Yes: Atraumatic, Normocephalic Neck: Yes: Supple, Trachea Midline Cardiovascular: Yes: Regular Rate and Rhythm. No: Murmur Respiratory: Yes: Regular, CTA Bilaterally Gastrointestinal: Yes: Soft, Other (hypoactive bowel sounds) Musculoskeletal: Yes: Back Pain Extremities: No: Calf Tenderness, Cold, Cyanosis Edema: No Peripheral Pulses: Left Doralis Pedis: 2+, Right Dorsalis Pedis: 2+ Integumentary: No: Erythema, Jaundice Wound/Incision: Yes: Clean/Dry, Well Approximated, Dressing Dry and Intact Neurological: Yes: Alert, Oriented Psychiatric: Yes: Alert, Oriented Labs: CBC, BMP 04/19/17 06:45 04/19/17 06:45 Assessment/Plan This is a 71 yo male with h/o of lumbar spinal stenosis, neurogenic claudication , BLE radiculopathy, HTN, HLD, BPH, depression, hyperparathyroidism s/p hyperparathyroidectomy (09/17/15), YAEL on CPAP, glaucoma, cataracts, and depression who is s/p L4-S1 laminectomies & posterior decompression, L4/L5 & L5/ S1 PLIF, L4-S1 PISF w/incidental durotomy POD #1 (04/17/17) by Dr. Whittaker. Given Ancef perioperatively. NEURO #S/P Lumbar laminectomy, posterior decompression by Dr. Whittaker. Patient was on strict bedrest with HOB flat until 48 hrs after surgery. Now can slowly move toward getting up. -HOB to 45 degrees as tolerated -Up to chair tomorrow as tolerated -Dilaudid DROP HAMMER SETTER UP, IVP prn -Continue ceftriaxone until BCx result -Continue Joshua until ambulatory -WBAT BLE and BUE after bedrest period CARDIOLOGY #HTN -Continue home nifedipine, losartan #HLD -Hold home statin fo rnow RESPIRATORY #Possible RLL PNA. On CXR 04/19, WBC increasing, cultures pending. -Continue ceftriaxone (today is day 2) -FU BCx #Obstructive Sleep Apnea. Patient seen with apnea when observed sleeping -CPAP at night -Supplemental O2 to keep pulse ox >92% -Formal sleep study as OP FEN/GI -NPO until flatus -IVF (NS) at 125 cc/hr PPX -MAXIME's, SCD's. -Incentive spirometry. -PT/OT/Rehab when able, OOB starting tomorrow Lines/Tubes/Drains -Joshua: placed 04/17 -PIV: placed 04/17
[2017-04-20 08:42] LABS: BASO % 0.3 % (0-2.0); HEMOGLOBIN 12.6 GM/dL (11.7-16.9); LYMPH % 6.4 % (8-40); MCH 30.6 pg (25.7-33.7); MEAN CELL VOLUME 92.5 fl (80-96); MEAN PLT VOLUME 8.5 fl (7.5-11.1); MONO % 9.2 % (3.8-10.2); NEUT % 84.1 % (42.8-82.8); PLATELET COUNT 242 K/MM3 (134-434); RBC 4.11 M/mm3 (4.00-5.60); WHITE BLOOD COUNT 23.1 K/mm3 (4.0-10.0)
[2017-04-20 09:10] LABS: ANION GAP 10 (8-16); BLOOD UREA NITROGEN 12 mg/dL (7-18); CALCIUM 8.5 mg/dL (8.5-10.1); CHLORIDE 93 mmol/L (98-107); CO2 36 mmol/L (21-32); CREATININE 0.8 mg/dL (0.7-1.3); GLUCOSE,RANDOM 125 mg/dL (74-106); MAGNESIUM 2.8 mg/dL (1.8-2.4); POTASSIUM 3.4 mmol/L (3.5-5.1); SODIUM 139 mmol/L (136-145)
[2017-04-20] MEDS ORDERED: PT OWN MED DRAWER 7, Y5N ONE (09:32)
[2017-04-20] MEDS: LOSARTAN POTASSIUM 50 MG TABLET (FP) PO SCH (09:44)
[2017-04-20] MEDS: FINASTERIDE 5 MG TABLET (FP) PO SCH (09:45)
[2017-04-20] MEDS: NIFEdipine E.R. 90 MG TABLET (FP) PO SCH (09:45)
[2017-04-20] MEDS: PANTOPRAZOLE SODIUM 40 MG VIAL IVPUSH SCH (09:46)
--- NOTE | 2017-04-20 09:46 | PN ---
Progress Note (short form) - Note Progress Note: Anesthesia/Pain Pt seen and examined S:alert and awake O: Vital Signs Temperature 98.1 F 04/20/17 02:00 Pulse Rate 95 H 04/20/17 08:30 Respiratory Rate 17 04/20/17 08:00 Blood Pressure 183/83 04/20/17 08:00 O2 Sat by Pulse Oximetry (%) 94 L 04/20/17 08:39 CBC, BMP 04/20/17 08:25 04/20/17 08:25 A/P: Current Active Problems Chronic back pain (Acute) Glaucoma (Acute) HTN (hypertension) (Acute) Hyperlipemia (Acute) S/P laminectomy (Acute) Sleep apnea syndrome (Acute) s/p Doing well post op Uses SONAR TECHNICIAN Continue current care Oscar Jackson MD
[2017-04-20] MEDS: CEFTRIAXONE 1 G/50 ML PREMIX 50 ML IVPB SCH (09:48)
--- NOTE | 2017-04-20 13:14 | PN ---
Teaching Attending Note Name of Resident: Alexandrea Terry ATTENDING PHYSICIAN STATEMENT I saw and evaluated the patient. I reviewed the resident's note and discussed the case with the resident. I agree with the resident's findings and plan as documented. SUBJECTIVE: Patient seen and examined in the ICU. Sleepy but easily arousable. Reports that his pain is a little better today. No headache, nausea or vomiting. Some tingling of the LE (same as yesterday). No CP or SOB. Intake & Output 04/17/17 04/18/17 04/19/17 04/20/17 23:59 23:59 23:59 23:59 Intake Total 3475 1800 2125 875 Output Total 1900 2100 3600 Balance 1575 -300 -1475 875 Weight 193 lb 203 lb Last Vital Signs Temp Pulse Resp BP Pulse Ox 98.4 F 92 H 17 177/81 97 04/20/17 10:00 04/20/17 10:00 04/20/17 10:00 04/20/17 10:00 04/20/17 11:55 Active Medications Finasteride (Proscar -) 5 mg PO DAILY [facility] Last Admin: 04/20/17 09:45 Dose: 5 mg Hydromorphone HCl (Dilaudid Injection -) 0.5 mg IVPUSH [id number] PRN PRN Reason: PAIN-PACU ORDER X 4 DOSES ONLY Hydromorphone HCl (Dilaudid Sampler Tester -) 6 mg [employer]SP[employer] DRIVER JARROD PRN Reason: Protocol Stop: 04/20/17 15:03 Last Admin: 04/20/17 06:06 Dose: 6 mg Lactated Ringer's (Lactated Ringers Solution) 1,000 mls @ 125 mls/hr IV ASDIR REPLACED BY [facility] Last Admin: 04/19/17 21:45 Dose: 125 mls/hr CEFTRIAXONE 1 G/50 ML PREMIX (Ceftriaxone 1 Gm-D5w Bag) 50 mls @ 100 mls/hr IVPB DAILY [facility] Last Admin: 04/20/17 09:48 Dose: 100 mls/hr Losartan Potassium (Cozaar -) 100 mg PO DAILY [facility] Last Admin: 04/20/17 09:44 Dose: 100 mg Nifedipine (Procardia Xl -) 90 mg PO DAILY [facility] Last Admin: 04/20/17 09:45 Dose: 90 mg Ondansetron HCl (Zofran Injection) 4 mg IVPUSH Q6H PRN PRN Reason: NAUSEA AND/OR VOMITING Pantoprazole Sodium (Protonix Iv) 40 mg IVPUSH DAILY JARROD Last Admin: 04/20/17 09:46 Dose: 40 mg Gen: NAD at rest Heart: RRR Lung: decreased breath sounds at the bases, scattered rhonchi Abd: soft, nontender Ext: no edema Laboratory Results - last 24 hr 04/20/17 04/20/17 08:25 08:25 WBC 23.1 H RBC 4.11 Hgb 12.6 Hct 38.0 MCV 92.5 MCH 30.6 MCHC 33.0 RDW 15.0 Plt Count 242 MPV 8.5 Neutrophils % 84.1 H Lymphocytes % 6.4 L Monocytes % 9.2 Eosinophils % 0.0 Basophils % 0.3 Sodium 139 Potassium 3.4 L Chloride 93 L Carbon Dioxide 36 H Anion Gap 10 BUN 12 Creatinine 0.8 Random Glucose 125 H D Calcium 8.5 Magnesium 2.8 H D ASSESSMENT AND PLAN: Spinal Stenosis s/p L4-S1 Laminectomies/Posterior Decompression/Fusion/Incidental Durotomy 04/17 Obstructive Sleep Apnea HTN Hyperlipidemia Hyperparathyroidism s/p Hyperparathyroidectomy - PO as tolerated - pain control - Incentive spirometry - CPAP standby - IVF - outpatient Sleep workup - Joshua/activity/DVT prophylaxis per surgery Dr Montes Critical care time spent in reviewing chart, evaluating patient and formulating plan - 36 minutes.
[2017-04-20] MEDS ORDERED: SODIUM CHLORIDE 1,000 ML IV SCH (13:45)
[2017-04-20] MEDS: SODIUM CHLORIDE 1,000 ML IV SCH (15:23)
[2017-04-20] MEDS: BRIMONIDINE TARTRATE 0.1% OPHTHALMIC 5 ML BOTTLE OU SCH (21:19)
[2017-04-20] MEDS: LATANOPROST 0.005% OPHTH SOLN 2.5ML BOTTLE OU SCH (21:19)
[2017-04-20] MEDS: TIMOLOL 0.5% OPHTHALMIC SOL 5 ML BOTTLE OU SCH (21:20)
[2017-04-20] MEDS ORDERED: HYDROmorphone *PCA* 6MG/30ML DISP.SYRIN PCA ONE (23:32)
[2017-04-21 06:29] LABS: BASO % 0.1 % (0-2.0); EOS % 0.2 % (0-4.5); HEMATOCRIT 34.6 % (35.4-49); HEMOGLOBIN 11.8 GM/dL (11.7-16.9); LYMPH % 7.3 % (8-40); MCH 31.1 pg (25.7-33.7); MEAN CELL VOLUME 91.4 fl (80-96); MONO % 9.2 % (3.8-10.2); NEUT % 83.2 % (42.8-82.8); PLATELET COUNT 275 K/MM3 (134-434); RBC 3.79 M/mm3 (4.00-5.60); RDW 14.9 % (11.9-15.9); WHITE BLOOD COUNT 20.7 K/mm3 (4.0-10.0)
--- NOTE | 2017-04-21 06:47 | PN ---
Progress Note, Physician History of Present Illness: 24 HOUR EVENTS POD #4. Spoke with Dr. Whittaker who requested HOB at 45 degrees yesterday PM, today patient can get up into chair slowly. BCx NGTD. SUBJECTIVE Patient states feeling much less pain today, feels comfortable starting to move around. Sensation still decreased in BLE. 24 HOUR INTAKE & OUTPUT In: 2350cc Out: 1800cc Net: 550cc BM: None LINES/TUBES/DRAINS Joshua: Day 4 PIV: Day 4 - Current Medication List Current Medications: Active Medications Brimonidine Tartrate (Alphagan P 0.1% -) 1 drop OU BID [facility] Last Admin: 04/20/17 21:19 Dose: 1 drop Finasteride (Proscar -) 5 mg PO DAILY [facility] Last Admin: 04/20/17 09:45 Dose: 5 mg Hydromorphone HCl (Dilaudid Injection -) 0.5 mg IVPUSH [id number] PRN PRN Reason: PAIN-PACU ORDER X 4 DOSES ONLY CEFTRIAXONE 1 G/50 ML PREMIX (Ceftriaxone 1 Gm-D5w Bag) 50 mls @ 100 mls/hr IVPB DAILY [facility] Last Admin: 04/20/17 09:48 Dose: 100 mls/hr Sodium Chloride (Normal Saline -) 1,000 mls @ 125 mls/hr IV ASDIR [facility] Last Admin: 04/20/17 15:23 Dose: 125 mls/hr Latanoprost (Xalatan 0.005% Eye Drops -) 1 drop OU HS [facility] Last Admin: 04/20/17 21:19 Dose: 1 drop Losartan Potassium (Cozaar -) 100 mg PO DAILY [facility] Last Admin: 04/20/17 09:44 Dose: 100 mg Nifedipine (Procardia Xl -) 90 mg PO DAILY [facility] Last Admin: 04/20/17 09:45 Dose: 90 mg Ondansetron HCl (Zofran Injection) 4 mg IVPUSH Q6H PRN PRN Reason: NAUSEA AND/OR VOMITING Pantoprazole Sodium (Protonix Iv) 40 mg IVPUSH DAILY [facility] Last Admin: 04/20/17 09:46 Dose: 40 mg Timolol Maleate (Timoptic 0.5%) 1 drop OU BID [facility] Last Admin: 04/20/17 21:20 Dose: 1 drop - Objective Vital Signs: Vital Signs Temperature 98.2 F 04/21/17 06:00 Pulse Rate 116 H 04/21/17 06:00 Respiratory Rate 22 04/21/17 06:00 Blood Pressure 147/77 04/21/17 06:00 O2 Sat by Pulse Oximetry (%) 94 L 04/20/17 21:00 Constitutional: Yes: Well Nourished, No Distress, Calm Eyes: Yes: WNL, Conjunctiva Clear, EOM Intact HENT: Yes: WNL, Atraumatic, Normocephalic Neck: Yes: WNL, Supple, Trachea Midline Cardiovascular: Yes: Tachycardia Respiratory: Yes: WNL, Regular, CTA Bilaterally Gastrointestinal: Yes: WNL, Normal Bowel Sounds, Soft Musculoskeletal: Yes: Back Pain Extremities: Yes: Other (subjective numbness/tingling) Edema: No Peripheral Pulses: Left Doralis Pedis: 2+, Right Dorsalis Pedis: 2+ Integumentary: Yes: WNL Wound/Incision: Yes: Clean/Dry, Dressing Dry and Intact. No: Draining, Reddened Neurological: Yes: Alert, Oriented, Numbness, Tingling, Other (BLE motor intact distally) ...Motor Strength: WNL Psychiatric: Yes: WNL, Alert, Oriented Labs: CBC, BMP 04/21/17 05:30 Assessment/Plan This is a 71 yo male with h/o of lumbar spinal stenosis, neurogenic claudication , BLE radiculopathy, HTN, HLD, BPH, depression, hyperparathyroidism s/p hyperparathyroidectomy (09/17/15), YAEL on CPAP, glaucoma, cataracts, and depression who is s/p L4-S1 laminectomies & posterior decompression, L4/L5 & L5/ S1 PLIF, L4-S1 PISF w/ incidental durotomy (04/17/17) by Dr. Whittaker. Given Ancef perioperatively. NEURO #S/P Lumbar laminectomy, posterior decompression by Dr. Whittaker. Patient was on strict bedrest with HOB flat until 48 hrs after surgery. Now can slowly move toward getting up. -HOB to 45 degrees as tolerated -Up to chair tomorrow as tolerated -PT to come see and help get OOB -Dilaudid SOIL BIOLOGY TEACHER, IVP prn -BCx and UCx drawn 04/19 are NGTD as of 04/21; ceftriaxone discontinued -Continue Joshua until ambulatory -WBAT starting slowly 04/21 CARDIOLOGY #HTN -Continue home nifedipine, losartan #HLD -Hold home statin for now RESPIRATORY Doing well. Initially thought possible RLL PNA based on CXR 04/19, WBC increasing , cultures taken, and empiric ceftriaxone given, NGTD as of 04/21 so abx stopped. -FU BCx final result #Obstructive Sleep Apnea. Patient seen with apnea when observed sleeping -CPAP at night -Supplemental O2 to keep pulse ox >92% -Formal sleep study as OP FEN/GI -NPO until flatus (none as of 04/21) -IVF (NS) at 125 cc/hr PPX -MAXIME's, SCD's. -Incentive spirometry. -PT/OT/Rehab when able, OOB starting tomorrow Lines/Tubes/Drains -Joshua: placed 04/17 -PIV: placed 04/17 DISPO Further ICU care
[2017-04-21 07:00] LABS: CHLORIDE 96 mmol/L (98-107); SODIUM 141 mmol/L (136-145)
[2017-04-21 07:08] LABS: ALBUMIN 2.7 g/dl (3.4-5.0); ALK PHOS 57 U/L (45-117); ANION GAP 14 (8-16); BILIRUBIN,TOTAL 0.7 mg/dL (0.2-1.0); BLOOD UREA NITROGEN 14 mg/dL (7-18); CALCIUM 7.6 mg/dL (8.5-10.1); CO2 31 mmol/L (21-32); CREATININE 0.6 mg/dL (0.7-1.3); GLUCOSE,RANDOM 124 mg/dL (74-106); MAGNESIUM 2.4 mg/dL (1.8-2.4); PHOSPHOROUS 1.3 mg/dL (2.5-4.9); SGOT/AST 62 U/L (15-37); SGPT/ALT 32 U/L (12-78); TOT PROT 6.3 g/dl (6.4-8.2)
[2017-04-21 07:22] LABS: POTASSIUM 2.6 mmol/L (3.5-5.1)
[2017-04-21] MEDS: PANTOPRAZOLE SODIUM 40 MG VIAL IVPUSH SCH (09:30)
--- NOTE | 2017-04-21 09:43 | PN ---
Progress Note (short form) - Note Progress Note: Anesthesiology Pain Service 71 y.o. male POD#4 s/p PLIF under GA with post-op MUSHROOM SORTER GRADER. Per RN, pt. is still using MUSHROOM SORTER GRADER with assistance to push button. He has also been supine with instructions not to sit-up and has hence been NPO except medications. RN states that they may be able to sit him up later today and see how well he is able to take PO. Otherwise, VSS, pain appears well-managed. Stable post-operative ICU course. Continue current management. Will continue MUSHROOM SORTER GRADER for now until pt. more optimal for PO intake. Please contact Anesthesiology with any issues related to MUSHROOM SORTER GRADER management. Thank you.
[2017-04-21] MEDS ORDERED: PT OWN MED DRAWER 7, Y5N ONE (09:52)
[2017-04-21] MEDS: CEFTRIAXONE 1 G/50 ML PREMIX 50 ML IVPB SCH (09:54)
[2017-04-21] MEDS: LOSARTAN POTASSIUM 50 MG TABLET (FP) PO SCH (09:54)
[2017-04-21] MEDS: NIFEdipine E.R. 90 MG TABLET (FP) PO SCH (09:54)
[2017-04-21] MEDS: FINASTERIDE 5 MG TABLET (FP) PO SCH (09:54)
[2017-04-21] MEDS: TIMOLOL 0.5% OPHTHALMIC SOL 5 ML BOTTLE OU SCH ×2 (09:55→21:04)
[2017-04-21] MEDS: BRIMONIDINE TARTRATE 0.1% OPHTHALMIC 5 ML BOTTLE OU SCH ×2 (09:55→21:04)
[2017-04-21] MEDS ORDERED: POTASSIUM PHOSPHATE 30 MM in SODIUM CHLORIDE 250 ML IVPB ONE (11:58)
--- NOTE | 2017-04-21 12:59 | PN ---
Teaching Attending Note Name of Resident: Alexandrea Terry ATTENDING PHYSICIAN STATEMENT I saw and evaluated the patient. I reviewed the resident's note and discussed the case with the resident. I agree with the resident's findings and plan as documented. SUBJECTIVE: Patient seen and examined in the ICU. Remains sleepy but easily arousable. Reports that his pain is a little better today. No headache, nausea or vomiting. Some tingling of the LE (no change). No CP or SOB. Intake & Output 04/18/17 04/19/17 04/20/17 04/21/17 23:59 23:59 23:59 23:59 Intake Total 1800 2125 2350 Output Total 2100 3600 1800 600 Balance -300 -1475 550 -600 Weight 203 lb 198 lb 9 oz Last Vital Signs Temp Pulse Resp BP Pulse Ox 98.3 F 101 H 20 112/64 95 04/21/17 10:00 04/21/17 12:00 04/21/17 12:00 04/21/17 12:00 04/21/17 10:00 Active Medications Brimonidine Tartrate (Alphagan P 0.1% -) 1 drop OU BID [facility] Last Admin: 04/21/17 09:55 Dose: 1 drop Finasteride (Proscar -) 5 mg PO DAILY [facility] Last Admin: 04/21/17 09:54 Dose: 5 mg Hydromorphone HCl (Dilaudid Injection -) 0.5 mg IVPUSH [id number] PRN PRN Reason: PAIN-PACU ORDER X 4 DOSES ONLY Sodium Chloride (Normal Saline -) 1,000 mls @ 125 mls/hr IV ASDIR [facility] Last Admin: 04/20/17 15:23 Dose: 125 mls/hr Potassium Phosphate 30 mm/ (Sodium Chloride) 260 mls @ 62.5 mls/hr IVPB ONCE ONE Stop: 04/21/17 16:07 Latanoprost (Xalatan 0.005% Eye Drops -) 1 drop OU HS [facility] Last Admin: 04/20/17 21:19 Dose: 1 drop Losartan Potassium (Cozaar -) 100 mg PO DAILY [facility] Last Admin: 04/21/17 09:54 Dose: 100 mg Nifedipine (Procardia Xl -) 90 mg PO DAILY [facility] Last Admin: 04/21/17 09:54 Dose: 90 mg Ondansetron HCl (Zofran Injection) 4 mg IVPUSH Q6H PRN PRN Reason: NAUSEA AND/OR VOMITING Pantoprazole Sodium (Protonix Iv) 40 mg IVPUSH DAILY [facility] Last Admin: 04/21/17 09:30 Dose: 40 mg Timolol Maleate (Timoptic 0.5%) 1 drop OU BID [facility] Last Admin: 04/21/17 09:55 Dose: 1 drop Gen: NAD at rest Heart: RRR Lung: decreased breath sounds at the bases, scattered rhonchi Abd: soft, nontender Ext: no edema Laboratory Results - last 24 hr 04/21/17 04/21/17 05:30 05:30 WBC 20.7 H RBC 3.79 L Hgb 11.8 Hct 34.6 L MCV 91.4 MCH 31.1 MCHC 34.0 RDW 14.9 Plt Count 275 MPV 9.0 Neutrophils % 83.2 H Lymphocytes % 7.3 L Monocytes % 9.2 Eosinophils % 0.2 D Basophils % 0.1 Sodium 141 Potassium 2.6 L* D Chloride 96 L Carbon Dioxide 31 Anion Gap 14 BUN 14 Creatinine 0.6 L D Creat Clearance w eGFR > 60 Random Glucose 124 H Calcium 7.6 L Phosphorus 1.3 L D Magnesium 2.4 Total Bilirubin 0.7 AST 62 H D ALT 32 D Alkaline Phosphatase 57 Total Protein 6.3 L Albumin 2.7 L ASSESSMENT AND PLAN: Spinal Stenosis s/p L4-S1 Laminectomies/Posterior Decompression/Fusion/Incidental Durotomy 04/17 Obstructive Sleep Apnea HTN Hyperlipidemia Hyperparathyroidism s/p Hyperparathyroidectomy - PO as tolerated - pain control - Incentive spirometry - CPAP standby - IVF - outpatient Sleep workup - Joshua/activity/DVT prophylaxis per surgery - OOB to chair Dr Montes Critical care time spent in reviewing chart, evaluating patient and formulating plan - 36 minutes.
[2017-04-21] MEDS: POTASSIUM CHLORIDE 10 MEQ in SODIUM CHLORIDE 100 ML IVPB SCH ×2 (16:56→18:04)
[2017-04-21] MEDS ORDERED: HYDROmorphone HCL CARPU-JECT 4 MG/1 ML DISP.SYRIN IVPUSH PRN ×2 (17:59→19:39)
[2017-04-21] MEDS: SODIUM CHLORIDE 1,000 ML IV SCH (18:04)
[2017-04-21] MEDS ORDERED: ACETAMINOPHEN 1000 MG/100 ML VIAL (NON FORMULARY) IVPB ONE (19:45)
[2017-04-21] MEDS: LATANOPROST 0.005% OPHTH SOLN 2.5ML BOTTLE OU SCH (21:03)
[2017-04-21] MEDS: HYDROmorphone HCL CARPU-JECT 4 MG/1 ML DISP.SYRIN IVPUSH PRN (22:53)
[2017-04-22] MEDS: HYDROmorphone HCL CARPU-JECT 4 MG/1 ML DISP.SYRIN IVPUSH PRN ×2 (02:56→08:41)
[2017-04-22 06:48] LABS: BASO % 0.3 % (0-2.0); HEMATOCRIT 34.7 % (35.4-49); HEMOGLOBIN 11.8 GM/dL (11.7-16.9); LYMPH % 13.3 % (8-40); MCHC 33.8 g/dl (32.0-35.9); MEAN CELL VOLUME 91.6 fl (80-96); MEAN PLT VOLUME 9.1 fl (7.5-11.1); MONO % 11.7 % (3.8-10.2); NEUT % 73.7 % (42.8-82.8); PLATELET COUNT 295 K/MM3 (134-434); RBC 3.79 M/mm3 (4.00-5.60); RDW 15.1 % (11.9-15.9); WHITE BLOOD COUNT 15.6 K/mm3 (4.0-10.0)
[2017-04-22 07:00] LABS: ALBUMIN 2.7 g/dl (3.4-5.0); BLOOD UREA NITROGEN 12 mg/dL (7-18); CHLORIDE 101 mmol/L (98-107); PHOSPHOROUS 2.3 mg/dL (2.5-4.9); SGOT/AST 55 U/L (15-37); SGPT/ALT 33 U/L (12-78); SODIUM 143 mmol/L (136-145)
[2017-04-22 07:13] LABS: ALK PHOS 55 U/L (45-117); ANION GAP 14 (8-16); BILIRUBIN,TOTAL 0.6 mg/dL (0.2-1.0); CALCIUM 7.3 mg/dL (8.5-10.1); CO2 28 mmol/L (21-32); CREATININE 0.7 mg/dL (0.7-1.3); GLUCOSE,RANDOM 102 mg/dL (74-106); MAGNESIUM 2.3 mg/dL (1.8-2.4); TOT PROT 6.5 g/dl (6.4-8.2)
[2017-04-22 07:50] LABS: POTASSIUM 2.7 mmol/L (3.5-5.1)
[2017-04-22] MEDS: NIFEdipine E.R. 90 MG TABLET (FP) PO SCH (09:39)
[2017-04-22] MEDS: LOSARTAN POTASSIUM 50 MG TABLET (FP) PO SCH (09:39)
[2017-04-22] MEDS: PANTOPRAZOLE SODIUM 40 MG VIAL IVPUSH SCH (09:39)
[2017-04-22] MEDS: BRIMONIDINE TARTRATE 0.1% OPHTHALMIC 5 ML BOTTLE OU SCH ×2 (09:40→21:47)
[2017-04-22] MEDS: TIMOLOL 0.5% OPHTHALMIC SOL 5 ML BOTTLE OU SCH ×2 (09:40→21:47)
[2017-04-22] MEDS: POTASSIUM CHLORIDE 10 MEQ in SODIUM CHLORIDE 100 ML IVPB SCH ×3 (11:01→13:37)
[2017-04-22] MEDS: FINASTERIDE 5 MG TABLET (FP) PO SCH (11:44)
--- NOTE | 2017-04-22 13:39 | PN ---
Progress Note (short form) - Note Progress Note: 71M s/p L4-S1 laminectomies & posterior decompression, L4/L5 &L5/S1 PLIF, L4-S1 PISF w/incidental durotomy POD #5. Pain well controlled. (-) Headaches, chest pain, shortness of breath, nausea, vomiting, chills, & sweats. (+) De Paz; (+) Flatus; (-) BM. (+) Appetite, tolerating diet. Stood with PT at bedside yesterday. All labs & vitals reviewed. Apyrexia. PE: AAO x 3, NAD. Back: Wound, dressing C/D/I. B/L LE sensorimotor status at baseline. LLE M: Muscles supplying hips, knees, ankles, hindfeet, midfeet, and forefeet are intact. RLE M: Muscles supplying hips, knees, hindfeet, midfeet, and forefeet are intact; ankle plantar flexion intact; ankle dorsiflexion weak. B/L LE S: L2-S1 2/2. B/L LE V: BCR <3 sec, WWP x 5. 71M s/p L4-S1 laminectomies & posterior decompression, L4/L5 &L5/S1 PLIF, L4-S1 PISF w/incidental durotomy POD #5. -Pain control. -Mechanical DVT PPx. only: MAXIME's, SCD's. -Incentive spirometry. -PT/OT/Rehab, OOB w/assistance. -WBAT B/L LE. -d/c de paz. -Advance diet as tolerated. -Care per ICU team; care per medical hospitalist team when out of ICU. -Will follow. Benitez Whittaker MD (Orthopaedic Surgery).
[2017-04-22] MEDS: POLYETHYLENE GLYCOL 3350 119 GM BTL PO SCH ×2 (13:41→21:48)
--- NOTE | 2017-04-22 19:33 | PN ---
Progress Note (short form) - Note Progress Note: CCM: SUBJECTIVE: Patient seen and examined in the ICU. Awake alert asking for food oob yesterday with assist in for floor bed Vital Signs Temp 99.3 F 04/22/17 18:00 Pulse 93 H 04/22/17 18:00 Resp 22 04/22/17 16:00 BP 137/69 04/22/17 18:00 Pulse Ox 97 04/22/17 10:00 Intake & Output 04/21/17 04/22/17 04/22/17 23:59 11:59 23:59 Intake Total 2505 875 1660 Output Total 5512 494 1239 Balance 1405 75 260 Weight 89.556 kg Intake: IV 1875 875 750 Normal Saline - 1,000 ml 1875 875 750 @ 125 mls/hr IV ASDIR [facility] Rx#:[id number] IVPB 350 300 Oral 280 610 Output: Urine 7801 118 7692 Joshua 5102 458 6757 Other: Voiding Method Indwelling Catheter Indwelling Catheter Weight Measurement Method Built in [facility] Active Medications Brimonidine Tartrate (Alphagan P 0.1% -) 1 drop OU BID [facility] Last Admin: 04/22/17 09:40 Dose: 1 drop Finasteride (Proscar -) 5 mg PO DAILY [facility] Last Admin: 04/22/17 11:44 Dose: 5 mg Hydromorphone HCl (Dilaudid Injection -) 1 mg IVPUSH Q3H PRN PRN Reason: pain 5-10 Last Admin: 04/22/17 08:41 Dose: 1 mg Latanoprost (Xalatan 0.005% Eye Drops -) 1 drop OU HS [facility] Last Admin: 04/21/17 21:03 Dose: 1 drop Losartan Potassium (Cozaar -) 100 mg PO DAILY [facility] Last Admin: 04/22/17 09:39 Dose: 100 mg Nifedipine (Procardia Xl -) 90 mg PO DAILY [facility] Last Admin: 04/22/17 09:39 Dose: 90 mg Ondansetron HCl (Zofran Injection) 4 mg IVPUSH Q6H PRN PRN Reason: NAUSEA AND/OR VOMITING Pantoprazole Sodium (Protonix Iv) 40 mg IVPUSH DAILY [facility] Last Admin: 04/22/17 09:39 Dose: 40 mg Polyethylene Glycol (Miralax (For Daily Use) -) 17 gm PO BID [facility] Last Admin: 04/22/17 13:41 Dose: 17 grams Timolol Maleate (Timoptic 0.5%) 1 drop OU BID [facility] Last Admin: 04/22/17 09:40 Dose: 1 drop Gen: NAD at rest Heart: RRR Lung: decreased breath sounds at the bases, clear anterior Abd: soft, nontender Ext: no edema CBC,CMP WBC 15.6 K/mm3 (4.0-10.0) H 04/22/17 06:15 RBC 3.79 M/mm3 (4.00-5.60) L 04/22/17 06:15 Hgb 11.8 GM/dL (11.7-16.9) 04/22/17 06:15 Hct 34.7 % (35.4-49) L 04/22/17 06:15 MCV 91.6 fl (80-96) 04/22/17 06:15 MCH 31.0 pg (25.7-33.7) 04/22/17 06:15 MCHC 33.8 g/dl (32.0-35.9) 04/22/17 06:15 RDW 15.1 % (11.9-15.9) 04/22/17 06:15 Plt Count 295 K/MM3 (134-434) 04/22/17 06:15 MPV 9.1 fl (7.5-11.1) 04/22/17 06:15 Neutrophils % 73.7 % (42.8-82.8) 04/22/17 06:15 Lymphocytes % 13.3 % (8-40) D 04/22/17 06:15 Monocytes % 11.7 % (3.8-10.2) H 04/22/17 06:15 Eosinophils % 1.0 % (0-4.5) D 04/22/17 06:15 Basophils % 0.3 % (0-2.0) 04/22/17 06:15 Sodium 143 mmol/L (136-145) 04/22/17 06:15 Potassium 2.7 mmol/L (3.5-5.1) L* 04/22/17 06:15 Chloride 101 mmol/L (98-107) 04/22/17 06:15 Carbon Dioxide 28 mmol/L (21-32) 04/22/17 06:15 Anion Gap 14 (8-16) 04/22/17 06:15 BUN 12 mg/dL (7-18) 04/22/17 06:15 Creatinine 0.7 mg/dL (0.7-1.3) 04/22/17 06:15 Creat Clearance w eGFR > 60 (>60) 04/22/17 06:15 POC Glucometer 135 UNITS (80-120) 04/17/17 15:08 Random Glucose 102 mg/dL (74-106) 04/22/17 06:15 Calcium 7.3 mg/dL (8.5-10.1) L 04/22/17 06:15 Phosphorus 2.3 mg/dL (2.5-4.9) L D 04/22/17 06:15 Magnesium 2.3 mg/dL (1.8-2.4) 04/22/17 06:15 Total Bilirubin 0.6 mg/dL (0.2-1.0) 04/22/17 06:15 AST 55 U/L (15-37) H 04/22/17 06:15 ALT 33 U/L (12-78) 04/22/17 06:15 Alkaline Phosphatase 55 U/L (45-117) 04/22/17 06:15 Total Protein 6.5 g/dl (6.4-8.2) 04/22/17 06:15 Albumin 2.7 g/dl (3.4-5.0) L 04/22/17 06:15 ASSESSMENT AND PLAN: Spinal Stenosis s/p L4-S1 Laminectomies/Posterior Decompression/Fusion/Incidental Durotomy 04/17 Obstructive Sleep Apnea HTN Hyperlipidemia Hyperparathyroidism s/p Hyperparathyroidectomy - PO started - pain control, not using HOGSHEAD HAND - Incentive spirometry - CPAP standby - IVF - outpatient Sleep workup - Joshua/activity/DVT prophylaxis per surgery - OOB to chair OK for floor
[2017-04-22] MEDS: LATANOPROST 0.005% OPHTH SOLN 2.5ML BOTTLE OU SCH (21:47)
[2017-04-22] MEDS: ACETAMINOPHEN 325 MG TABLET (FP) PO PRN (21:59)
[2017-04-23] MEDS: HYDROmorphone HCL CARPU-JECT 4 MG/1 ML DISP.SYRIN IVPUSH PRN ×3 (00:06→10:14)
[2017-04-23] MEDS: ACETAMINOPHEN 325 MG TABLET (FP) PO PRN (03:34)
--- NOTE | 2017-04-23 08:57 | PN ---
Progress Note (short form) - Note Progress Note: PULM/CCM POD#6 (04/17): 71 y/o man s/p L4-S1 laminectomies & posterior decompression, L4/ L5 &L5/S1 PLIF, L4-S1 PISF w/ incidental durotomy. Pt seen and examined in the ICU. A-Febrile, CA+OX3. Pain seems well controlled w/ simple prn pushes off [employer], no c/o HAs, eating, working w/ PT, NAD. Pt has no ICU requirements @ this time. ACTIVE MEDs Acetaminophen (Tylenol -) 650 mg PO Q4H PRN PRN Reason: FEVER Last Admin: 04/23/17 03:34 Dose: 650 mg Brimonidine Tartrate (Alphagan P 0.1% -) 1 drop OU BID [facility] Last Admin: 04/23/17 10:08 Dose: 1 drop Finasteride (Proscar -) 5 mg PO DAILY [facility] Last Admin: 04/23/17 10:16 Dose: 5 mg Hydromorphone HCl (Dilaudid Injection -) 1 mg IVPUSH Q3H PRN PRN Reason: pain 5-10 Last Admin: 04/23/17 10:14 Dose: 1 mg Potassium Phosphate 40 mm/ (Dextrose) 513.3333 mls @ 62.5 mls/hr IVPB ONCE ONE Stop: 04/23/17 17:42 Last Admin: 04/23/17 10:23 Dose: 62.5 mls/hr Latanoprost (Xalatan 0.005% Eye Drops -) 1 drop OU HS [facility] Last Admin: 04/22/17 21:47 Dose: 1 drop Losartan Potassium (Cozaar -) 100 mg PO DAILY [facility] Last Admin: 04/23/17 10:08 Dose: 100 mg Nifedipine (Procardia Xl -) 90 mg PO DAILY [facility] Last Admin: 04/23/17 10:08 Dose: 90 mg Ondansetron HCl (Zofran Injection) 4 mg IVPUSH Q6H PRN PRN Reason: NAUSEA AND/OR VOMITING Pantoprazole Sodium (Protonix Iv) 40 mg IVPUSH DAILY [facility] Last Admin: 04/23/17 10:08 Dose: 40 mg Polyethylene Glycol (Miralax (For Daily Use) -) 17 gm PO BID [facility] Last Admin: 04/23/17 10:08 Dose: 17 grams Timolol Maleate (Timoptic 0.5%) 1 drop OU BID [facility] Last Admin: 04/23/17 10:09 Dose: 1 drop V/S Temp 97.9 F 04/23/17 08:00 Pulse 80 04/23/17 08:13 Resp 20 04/23/17 06:00 BP 133/69 04/23/17 08:00 Pulse Ox 94 L 04/23/17 08:13 I's & O's 04/22/17 04/22/17 04/23/17 11:59 23:59 11:59 Intake Total 875 1900 200 Output Total 800 1400 1800 Balance 75 500 -1600 Weight 89.556 kg 89.584 kg Intake: IV 875 750 Normal Saline - 1,000 ml 875 750 @ 125 mls/hr IV ASDIR [facility] Rx#:[id number] IVPB 300 Oral 850 200 Output: Urine 800 1400 1800 Joshua 800 1400 1300 Void 0 500 Other: Voiding Method Indwelling Catheter Urinal Indwelling Catheter Weight Measurement Method Built in [facility] Built in [facility] PE: GEN: Elderly man resting comfortable in bed, predominantly Filipino speaking, CA +OX3, NAD PULM: CTAB CV: nml S1 S2, RR, unable to appreciate any G/M/R ABD: + BS, S/S N/T X4Q, (+) Flatus BACK: Wound, dressing C/D/I. EXT: + Pulses, WWPx4, no edema, B/L LE sensorimotor status presents weak but @ baseline a/p report CBC, BMP 04/22/17 06:15 04/22/17 06:15 RECENT STUDIES TO NOTE: CXR 04/20: Since 04/19/2017, the right upper lobe atelectasis has cleared. There is a weak inspiration with prominent mediastinum and degenerative changes. Impression: Improvement. Clearing of right upper lobe atelectasis. ASSESS: Spinal Stenosis Now POD#6 (04/17): s/p L4-S1 Laminectomies/Posterior Decompression/Fusion w/ incidental durotomy HTN HL Hyperparathyroidism s/p parathyroidectomy YAEL PLAN: - Supp FiO2 prn for an SpO2 > 92% - CPT - IS - Cont Post-Op pain control w/ IV pushes prn - Advance diet as tolerated - Replete e-lytes prn - Cont Home anti-HTN meds - Advance BR - D/c baldev - SCDs (Mechanical DVT PPX ONLY) - Cont eye gtts - Cont Proscar - Pt has no ICU requirements @ this time --> Transfer to Med Surg - WBAT B/L LE --> -PT/OT/Rehab, OOB w/assistance - Ortho will follow this pt - F/u as Out Patient for Sleep Study FRANCESL, GIP-BC [facility] ICU PULM/CCM [id number]
[2017-04-23] MEDS ORDERED: POTASSIUM PHOSPHATE 40 MM in DEXTROSE 5%-WATER - 500 ML IVPB ONE (09:30)
[2017-04-23] MEDS ORDERED: PT OWN MED DRAWER 7, Y5N ONE ×2 (10:04→10:13)
[2017-04-23] MEDS: POLYETHYLENE GLYCOL 3350 119 GM BTL PO SCH ×2 (10:08→21:59)
[2017-04-23] MEDS: LOSARTAN POTASSIUM 50 MG TABLET (FP) PO SCH (10:08)
[2017-04-23] MEDS: PANTOPRAZOLE SODIUM 40 MG VIAL IVPUSH SCH (10:08)
[2017-04-23] MEDS: BRIMONIDINE TARTRATE 0.1% OPHTHALMIC 5 ML BOTTLE OU SCH ×2 (10:08→21:58)
[2017-04-23] MEDS: NIFEdipine E.R. 90 MG TABLET (FP) PO SCH (10:08)
[2017-04-23] MEDS: TIMOLOL 0.5% OPHTHALMIC SOL 5 ML BOTTLE OU SCH ×2 (10:09→22:01)
[2017-04-23] MEDS: FINASTERIDE 5 MG TABLET (FP) PO SCH (10:16)
[2017-04-23] MEDS ORDERED: DOCUSATE SODIUM 100 MG CAPSULE (FP) PO PRN ×2 (11:36→12:12)
[2017-04-23] MEDS ORDERED: ONDANSETRON 4 MG/2 ML VIAL IVPUSH PRN (12:12)
[2017-04-23] MEDS ORDERED: HYDROmorphone HCL CARPU-JECT 4 MG/1 ML DISP.SYRIN IVPUSH PRN (12:12)
[2017-04-23] MEDS: HYDROmorphone HCL CARPU-JECT 4 MG/1 ML DISP.SYRIN IVPB PRN ×2 (17:43→22:02)
[2017-04-23] MEDS ORDERED: SENNOSIDES 8.6MG TABLET (FP) PO SCH (22:00)
[2017-04-23] MEDS: SENNOSIDES 8.6MG TABLET (FP) PO SCH (22:01)
[2017-04-23] MEDS: LATANOPROST 0.005% OPHTH SOLN 2.5ML BOTTLE OU SCH (22:01)
[2017-04-24] MEDS: HYDROmorphone HCL CARPU-JECT 4 MG/1 ML DISP.SYRIN IVPB PRN ×4 (08:37→21:40)
[2017-04-24] MEDS ORDERED: PT OWN MED DRAWER 7, Y5N ONE ×2 (10:03→21:34)
[2017-04-24] MEDS: NIFEdipine E.R. 90 MG TABLET (FP) PO SCH (10:07)
[2017-04-24] MEDS: FINASTERIDE 5 MG TABLET (FP) PO SCH (10:07)
[2017-04-24] MEDS: LOSARTAN POTASSIUM 50 MG TABLET (FP) PO SCH (10:07)
[2017-04-24] MEDS: BRIMONIDINE TARTRATE 0.1% OPHTHALMIC 5 ML BOTTLE OU SCH ×2 (10:07→21:46)
[2017-04-24] MEDS: POLYETHYLENE GLYCOL 3350 119 GM BTL PO SCH ×2 (10:07→21:45)
[2017-04-24] MEDS: PANTOPRAZOLE SODIUM 40 MG VIAL IVPUSH SCH (10:08)
[2017-04-24] MEDS: TIMOLOL 0.5% OPHTHALMIC SOL 5 ML BOTTLE OU SCH ×2 (10:08→21:46)
[2017-04-24] MEDS: ACETAMINOPHEN 325 MG TABLET (FP) PO PRN (10:13)
[2017-04-24] MEDS: SENNOSIDES 8.6MG TABLET (FP) PO SCH (21:44)
[2017-04-24] MEDS: LATANOPROST 0.005% OPHTH SOLN 2.5ML BOTTLE OU SCH (21:46)
[2017-04-25] MEDS: HYDROmorphone HCL CARPU-JECT 4 MG/1 ML DISP.SYRIN IVPB PRN ×3 (00:51→08:02)
[2017-04-25] MEDS ORDERED: PT OWN MED DRAWER 7, Y5N ONE (09:51)
[2017-04-25] MEDS: NIFEdipine E.R. 90 MG TABLET (FP) PO SCH (10:27)
[2017-04-25] MEDS: PANTOPRAZOLE SODIUM 40 MG VIAL IVPUSH SCH (10:27)
[2017-04-25] MEDS: FINASTERIDE 5 MG TABLET (FP) PO SCH (10:28)
[2017-04-25] MEDS: BRIMONIDINE TARTRATE 0.1% OPHTHALMIC 5 ML BOTTLE OU SCH ×2 (10:28→21:28)
[2017-04-25] MEDS: LOSARTAN POTASSIUM 50 MG TABLET (FP) PO SCH (10:28)
[2017-04-25] MEDS: POLYETHYLENE GLYCOL 3350 119 GM BTL PO SCH ×2 (10:28→21:28)
[2017-04-25] MEDS: TIMOLOL 0.5% OPHTHALMIC SOL 5 ML BOTTLE OU SCH ×2 (10:29→21:29)
[2017-04-25] MEDS: traMADol HCL 50 MG TABLET PO PRN ×2 (13:33→18:54)
[2017-04-25 14:00] LABS: BASO % 0.7 % (0-2.0); EOS % 3.7 % (0-4.5); HEMATOCRIT 32.8 % (35.4-49); HEMOGLOBIN 10.9 GM/dL (11.7-16.9); MCH 30.6 pg (25.7-33.7); MCHC 33.1 g/dl (32.0-35.9); MEAN CELL VOLUME 92.4 fl (80-96); MEAN PLT VOLUME 7.8 fl (7.5-11.1); MONO % 15.3 % (3.8-10.2); NEUT % 66.3 % (42.8-82.8); PLATELET COUNT 398 K/MM3 (134-434); RBC 3.55 M/mm3 (4.00-5.60); RDW 15.7 % (11.9-15.9); WHITE BLOOD COUNT 10.2 K/mm3 (4.0-10.0)
[2017-04-25 14:20] LABS: ANION GAP 9 (8-16); BLOOD UREA NITROGEN 10 mg/dL (7-18); CALCIUM 7.2 mg/dL (8.5-10.1); CHLORIDE 102 mmol/L (98-107); CO2 30 mmol/L (21-32); CREATININE 0.9 mg/dL (0.7-1.3); GLUCOSE,RANDOM 119 mg/dL (74-106); POTASSIUM 3.5 mmol/L (3.5-5.1); SODIUM 141 mmol/L (136-145)
[2017-04-25] MEDS ORDERED: LACTULOSE 20 GM/30 ML UDC (FOR ORAL USE ONLY) PO ONE (15:41)
--- NOTE | 2017-04-25 15:57 | PN ---
Progress Note (short form) - Note Progress Note: Accepting the patient onto hospitalist service today Subjective: The patient was seen and examined at the bedside with present. The patient has complaints of constipation Current Medications Generic Name Dose Route Start Last Admin Trade Name Freq PRN Reason Stop Dose Admin Acetaminophen 650 mg 04/23/17 12:12 04/24/17 10:13 Tylenol - PO 650 mg Q4H PRN Administration FEVER Bisacodyl 10 mg 04/25/17 15:49 Dulcolax Suppository - [place] 04/25/17 15:50 ONCE ONE Brimonidine Tartrate 1 drop 04/23/17 22:00 04/25/17 10:28 Alphagan P 0.1% - OU 1 drop BID [facility] Administration Docusate Sodium 100 mg 04/25/17 16:00 Colace - PO Q8H [facility] Finasteride 5 mg 04/24/17 10:00 04/25/17 10:28 Proscar - PO 5 mg DAILY [facility] Administration Latanoprost 1 drop 04/23/17 22:00 04/24/17 21:46 Xalatan 0.005% Eye Drops - OU 1 drop HS [facility] Administration Losartan Potassium 100 mg 04/24/17 10:00 04/25/17 10:28 Cozaar - PO 100 mg DAILY [facility] Administration Nifedipine 90 mg 04/24/17 10:00 04/25/17 10:27 Procardia Xl - PO 90 mg DAILY [facility] Administration Pantoprazole Sodium 40 mg 04/24/17 10:00 04/25/17 10:27 Protonix Iv IVPUSH 40 mg DAILY [facility] Administration Polyethylene Glycol 17 gm 04/23/17 22:00 04/25/17 10:28 Miralax (For Daily Use) - PO 17 grams BID [facility] Administration Senna 2 tab 04/23/17 22:00 04/24/17 21:44 Senna - PO 2 tab HS [facility] Administration Timolol Maleate 1 drop 04/23/17 22:00 04/25/17 10:29 Timoptic 0.5% OU 1 drop BID [facility] Administration Tramadol HCl 50 mg 04/25/17 12:52 04/25/17 13:33 Ultram - PO 50 mg Q6H PRN Administration PAIN SCALE >5 Objective: Vital Signs Period Temp Pulse Resp BP Sys/Cole Pulse Ox Last 24 Hr 97.9 F-98.2 F 73-82 18-20 114-151/60-74 Physical Exam: General: NAD, A&Ox3 Heart: RRR, S1S2 Lungs: CTA bilaterally Abd: Soft, non-tender, non-distended. Normoactive bowel sounds Skin: Back dressing, c/d/i Ext: Warm, well-perfused. 2+ DP/PT bilaterally Neuro: CN 2-12 intact CBCD WBC 10.2 K/mm3 (4.0-10.0) H D 04/25/17 13:42 RBC 3.55 M/mm3 (4.00-5.60) L 04/25/17 13:42 Hgb 10.9 GM/dL (11.7-16.9) L 04/25/17 13:42 Hct 32.8 % (35.4-49) L 04/25/17 13:42 MCV 92.4 fl (80-96) 04/25/17 13:42 MCHC 33.1 g/dl (32.0-35.9) 04/25/17 13:42 RDW 15.7 % (11.9-15.9) 04/25/17 13:42 Plt Count 398 K/MM3 (134-434) D 04/25/17 13:42 MPV 7.8 fl (7.5-11.1) D 04/25/17 13:42 CMP Sodium 141 mmol/L (136-145) 04/25/17 13:42 Potassium 3.5 mmol/L (3.5-5.1) D 04/25/17 13:42 Chloride 102 mmol/L (98-107) 04/25/17 13:42 Carbon Dioxide 30 mmol/L (21-32) 04/25/17 13:42 Anion Gap 9 (8-16) 04/25/17 13:42 BUN 10 mg/dL (7-18) 04/25/17 13:42 Creatinine 0.9 mg/dL (0.7-1.3) D 04/25/17 13:42 Creat Clearance w eGFR > 60 (>60) 04/22/17 06:15 Random Glucose 119 mg/dL (74-106) H 04/25/17 13:42 Calcium 7.2 mg/dL (8.5-10.1) L 04/25/17 13:42 Total Bilirubin 0.6 mg/dL (0.2-1.0) 04/22/17 06:15 AST 55 U/L (15-37) H 04/22/17 06:15 ALT 33 U/L (12-78) 04/22/17 06:15 Alkaline Phosphatase 55 U/L (45-117) 04/22/17 06:15 Total Protein 6.5 g/dl (6.4-8.2) 04/22/17 06:15 Albumin 2.7 g/dl (3.4-5.0) L 04/22/17 06:15 Microbiology 04/19/17 18:00 Blood - Peripheral Venous Blood Culture - Final NO GROWTH AFTER 5 DAYS INCUBATION 04/19/17 14:40 Blood - Peripheral Venous Blood Culture - Final NO GROWTH AFTER 5 DAYS INCUBATION 04/19/17 18:00 Urine - Urine De Paz Urine Culture - Final NO GROWTH OBTAINED Assessment: This is a 71 year old male with PMHx of spinal stenosis, HTN, hyperlipidemia, BPH, depression, hyperparathyroidism, glaucoma, cataracts, s/p L4-S1 laminectomy and posterior decompression, L4/L5 &L5/S1 PLIF, L4-S1 PISF w/ incidental durotomy for chronic lower back pain Plan: 1) POD #8 of L4-S1 laminectomy and posterior decompression, L4/L5 &L5/S1 PLIF, L4-S1 PISF w/incidental durotomy - Pain control with Tramadol - De Paz catheter removed this morning at 11am. DTV trial. Patient failed DTV trial on 04/23 and de paz had to get replaced. Continue Proscar - Constipation: colace, miralax, senna, bisacodyl suppository, lactulose - OOB - Incentive spirometer - Post op wound management per surgery 2) HTN - Continue Procardia - Continue Cozaar 3) Hyperlipidemia - Resume Crestor 4) Hyperkalemia - Resolved 5) BPH - Continue Proscar 6) F/E/N: - Sodium controlled diet - Monitor electrolytes 7) Prophylaxis: - Mechanical DVT prophylaxis only per surgical team - PT 8) Dispo: - Requires continued inpatient care CODE STATUS: FULL CODE Visit type - Emergency Visit Emergency Visit: No - New Patient This patient is new to me today: Yes Date on this admission: 04/25/17 - Critical Care Critical Care patient: No
[2017-04-25] MEDS ORDERED: BISACODYL 10 MG SUPP.RECT RC ONE (16:00)
--- NOTE | 2017-04-25 16:13 | PN ---
Progress Note (short form) - Note Progress Note: Pt seen and examined today using the [employer] phone bilingual interpreter number [phone]. He states that he is having back pain at the incision and down the back of his legs to b/l knees. He denies any nausea/CP/SOB/ no headaches. He was oob with PT and ambulated 6 steps, he is awaiting placement at a nursing facility when ready for discharge. The patient has a h/o of constipation and does take proscar for an enlarged prostate. He failed a trail of void on this admission. His de paz was removed today at 11am and is due to void. Bladder scan 170 ml today while seeing the patient. Vital Signs Period Temp Pulse Resp BP Sys/Cole Pulse Ox Last 24 Hr 97.9 F-98.2 F 73-82 18-20 114-151/60-74 GEN: A&0x3, NAD CV:RRR lungs:CTA b/l Abd: soft, non-distended, mild tenderness to suprapubic area Back: dressing c/d/i LE: no calf tenderness or swelling noted b/l, SCDs. 4/5 left straight leg raise 5/5 right straight leg raise. 5/5 right dorsi/plantar flexion. 4/5 left dorsi/ platnar flexion. Rectal: rectal vault with small amount of stool. CBC, BMP 04/25/17 13:42 04/25/17 13:42 A/P: 71 yo male s/p s/p L4-S1 laminectomies & posterior decompression, L4/L5 & L5/S1 PLIF, L4-S1 PISF w/incidental durotomy POD #5 pt received stool softners today as well as prune juice, rectal suppository ordered pt also being seen by the medical team, to order lactulose and repeat bladder scan tonight, if unable to void de paz catheter to be placed Repeat labs improved with decrease in leukocytosis and he remains afebrile Continue supportive measures oob/ambulate to improve strength D/w Dr. Whittaker continue proscar Ultram for pain issues, written by Dr. Whittaker
[2017-04-25] MEDS: DOCUSATE SODIUM 100 MG CAPSULE (FP) PO SCH ×2 (16:17→21:28)
--- NOTE | 2017-04-25 19:14 | PN ---
Progress Note (short form) - Note Progress Note: Patient appears better. Vitals as per chart C/O incisional pain. Problem persistant urinary obstrucive symptoms. CVS Stable RESP Clear ABD Soft Had bowel movement today WOund Bandage dry Neuro At baseline Walked in the room and hallway PLAN Depending on urinary status for D/C to rehab PT Mobilize as tolerated Change dressing See in office in 2 weeks
[2017-04-25] MEDS: SENNOSIDES 8.6MG TABLET (FP) PO SCH (21:27)
[2017-04-25] MEDS: LATANOPROST 0.005% OPHTH SOLN 2.5ML BOTTLE OU SCH (21:29)
[2017-04-25 21:58] LABS: URINE APPEARANCE CLOUDY; URINE BILIRUBIN NEGATIVE (NEGATIVE); URINE BLOOD 3+ (NEGATIVE); URINE COLOR AMBER; URINE GLUCOSE (UA) NEGATIVE (NEGATIVE); URINE KETONE NEGATIVE (NEGATIVE); URINE LEUK ESTERASE NEGATIVE (NEGATIVE); URINE NITRITE NEGATIVE (NEGATIVE); URINE UROBILINOGEN 4.0 E.U/dl mg/dL (0.2-1.0)
[2017-04-25] MEDS ORDERED: ROSUVASTATIN CA 10 MG TABLET (FP) PO SCH (22:00)
[2017-04-25 22:08] LABS: URINE PROTEIN 2+ (NEGATIVE)
[2017-04-25 22:10] LABS: URINE BACTERIA MODERATE /hpf (NONE SEEN); URINE MUCUS MODERATE
[2017-04-26] MEDS: traMADol HCL 50 MG TABLET PO PRN ×2 (01:06→11:54)
[2017-04-26] MEDS: DOCUSATE SODIUM 100 MG CAPSULE (FP) PO SCH ×2 (05:46→14:05)
[2017-04-26 08:32] LABS: HEMATOCRIT 33.5 % (35.4-49); HEMOGLOBIN 11.3 GM/dL (11.7-16.9); MCH 30.8 pg (25.7-33.7); MCHC 33.7 g/dl (32.0-35.9); MEAN CELL VOLUME 91.6 fl (80-96); MEAN PLT VOLUME 7.8 fl (7.5-11.1); PLATELET COUNT 414 K/MM3 (134-434); RBC 3.66 M/mm3 (4.00-5.60); RDW 15.4 % (11.9-15.9)
[2017-04-26] MEDS ORDERED: TAMSULOSIN HCL 0.4 MG CAP.ER.24H (FP) PO SCH (08:53)
[2017-04-26] MEDS ORDERED: PT OWN MED DRAWER 7, Y5N ONE (09:14)
[2017-04-26] MEDS: POLYETHYLENE GLYCOL 3350 119 GM BTL PO SCH (09:32)
[2017-04-26] MEDS: BRIMONIDINE TARTRATE 0.1% OPHTHALMIC 5 ML BOTTLE OU SCH (09:33)
[2017-04-26] MEDS: LOSARTAN POTASSIUM 50 MG TABLET (FP) PO SCH (09:33)
[2017-04-26] MEDS: FINASTERIDE 5 MG TABLET (FP) PO SCH (09:34)
[2017-04-26] MEDS: NIFEdipine E.R. 90 MG TABLET (FP) PO SCH (09:34)
[2017-04-26] MEDS: TIMOLOL 0.5% OPHTHALMIC SOL 5 ML BOTTLE OU SCH (09:34)
[2017-04-26] MEDS: PANTOPRAZOLE SODIUM 40 MG VIAL IVPUSH SCH (09:34)
--- NOTE | 2017-04-26 09:45 | DS ---
Physical Examination Vital Signs: Vital Signs Temperature 98.6 F 04/26/17 06:00 Pulse Rate 82 04/26/17 06:00 Respiratory Rate 20 04/26/17 06:00 Blood Pressure 140/70 04/26/17 06:00 O2 Sat by Pulse Oximetry (%) 97 04/25/17 21:00 Findings/Remarks: Physical Exam: General: NAD, A&Ox3 Heart: RRR, S1S2 Lungs: CTA bilaterally Abd: Soft, non-tender, non-distended. Normoactive bowel sounds Skin: Back dressing, c/d/i Ext: Warm, well-perfused. 2+ DP/PT bilaterally Neuro: CN 2-12 intact Labs: CBC, BMP 04/26/17 07:45 04/25/17 13:42 Discharge Summary Reason For Visit: SPINAL STENOSIS Current Active Problems Chronic back pain (Acute) Glaucoma (Acute) HTN (hypertension) (Acute) Hyperlipemia (Acute) S/P laminectomy (Acute) Sleep apnea syndrome (Acute) Hospital Course: This is a 71 year old male with PMHx of spinal stenosis, HTN, hyperlipidemia, BPH, depression, hyperparathyroidism, glaucoma, cataracts, s/p L4-S1 laminectomy and posterior decompression, L4/L5 &L5/S1 PLIF, L4-S1 PISF w/ incidental durotomy for chronic lower back pain Plan: 1) POD #9 of L4-S1 laminectomy and posterior decompression, L4/L5 &L5/S1 PLIF, L4-S1 PISF w/incidental durotomy - Pain control with Tramadol - Constipation: colace, miralax, senna, bisacodyl suppository, lactulose - OOB - Incentive spirometer - Post op wound management per surgery 2) Urinary retention - Failed due to void trial last night and de paz catheter placed back in. Continue Flomax and Proscar and attempt DTV trial in 2 days - F/u outpatient urology 2) HTN - Continue Procardia - Continue Cozaar 3) Hyperlipidemia - Resume Crestor 4) Hyperkalemia - Resolved 5) BPH - Continue Proscar - Flomax Prior to surgery the patient was able to ambulate with a cane, was able to walk up and down stairs, self care, and did not have any nursing needs at home. Post surgery, the patient is now able to ambulate only 8 feet with physical therapy. The patient would benefit from SNF with inpatient rehab. He needs the opportunity to regain function in a short term rehab facility This discharge took 45 minutes to complete Condition: Improved - Instructions Diet, Activity, Other Instructions: Please return to the ED with new, persistent, or worsening symptoms. Please follow-up with providers as indicated. You are being discharged with a de paz catheter. Please take 2 days of Flomax and have your de paz catheter removed for a due to void trial. Referrals: Negrito Montes MD [Staff Physician] - (Please follow-up with Dr. Montes for an outpatient sleep study within 1-2 weeks) César Whittaker MD [Staff Physician] - (Please follow-up with Dr. Whittaker within 2 week for post-operative care) Akshat Quintero MD [Staff Physician] - (Please follow-up with urology within 2-3 days for further management of your urinary retention) Disposition: HALF-WAY FACILITY - Home Medications Comprehensive Discharge Medication List: Ambulatory Orders Finasteride 5 mg PO DAILY 04/14/17 Losartan Potassium 100 mg PO DAILY 04/14/17 Nifedipine [Procardia Xl] 90 mg PO DAILY 04/14/17 Rosuvastatin Calcium [Crestor] 10 mg PO DAILY 04/14/17 Brimonidine Tartrate [Alphagan P 0.1% -] 1 drop OU 1000,2200 04/20/17 Latanoprost 0.005% Eye Drops [Xalatan 0.005% Eye Drops -] 1 drop OU 1000,2200 Acetaminophen [Tylenol .Regular Strength -] 650 mg PO Q4H PRN #0 tablet Docusate Sodium [Colace -] 100 mg PO TID capsule 04/26/17 Sennosides [Senna -] 2 tab PO HS tablet 04/26/17 Tamsulosin HCl [Flomax -] 0.4 mg PO DAILY@0830 cap.er.24h 04/26/17 Timolol 0.5% [Timoptic 0.5%] 1 drop OU BID drops 04/26/17 traMADol HCL [Ultram -] 50 mg PO Q6H PRN tablet MDD 200mg 04/26/17 This patient is new to me today: No Emergency Visit: No Critical Care patient: No - Discharge Referral Referred to [facility] No
[2017-04-26 14:26] VITALS: BP 143/86; PULSE 91; TEMP 98.9
--- NOTE | 2017-04-26 14:54 | PN ---
Progress Note (short form) - Note Progress Note: Pt had bowel movement yesterday. Joshua catheter was reinserted because he wasn' t able to urinate. Vital Signs Period Temp Pulse Resp BP Sys/Cole Pulse Ox Last 24 Hr 98.6 F-99.4 F 82-97 20-21 120-143/70-86 96-97 GEN: OOB to chair Back: dressing changed. Incision c/d/i with steri-strips. No erythema or drainage, mild ecchymosis to surrounding tissue. No fullness. CBC, BMP 04/26/17 07:45 04/25/17 13:42 A/P: 71 yo male s/p L4-S1 laminectomies & posterior decompression, L4/L5 &L5/S1 PLIF, L4-S1 PISF w/incidental durotomy POD #6 Awaiting transfer to rehab D/w with the medical team, Proscar restarted 04/24 and added flomax yesterday. Can plan for another TOV in several days. If at rehab instructions given for discharge trial of void in two days. Wound care instructions completed and f/u care with Dr. Whittaker D/w Dr. Whittaker
[2017-04-26] MEDS: ACETAMINOPHEN 325 MG TABLET (FP) PO PRN (16:57)
== END 2017-04-26 19:32 | DRG 304 ==
LOC: JSAMEDAYSX 06:54 → EDSTATUS 09:00 → JICU 18:31 → J6S 04-23 13:05
PROVIDERS: ADMIT Orthopaedic Surgery Orthopaedic Surgery of the Spine; ATTEND Registered Nurse
PROC: 01NB0ZZ Release Lumbar Nerve, Open Approach (ICD-10-PCS; 2017-04-17)
PROC: 0SG3071 Fusion of Lumbosacral Joint with Autologous Tissue Substitute, Posterior Approach, Posterior Column, Open Approach (ICD-10-PCS; 2017-04-17)
PROC: 0SG1071 Fusion of 2 or more Lumbar Vertebral Joints with Autologous Tissue Substitute, Posterior Approach, Posterior Column, Open Approach (ICD-10-PCS; 2017-04-17)
PROC: 0SG10K1 Fusion of 2 or more Lumbar Vertebral Joints with Nonautologous Tissue Substitute, Posterior Approach, Posterior Column, Open Approach (ICD-10-PCS; 2017-04-17)
PROC: 0SG00AJ Fusion of Lumbar Vertebral Joint with Interbody Fusion Device, Posterior Approach, Anterior Column, Open Approach (ICD-10-PCS; 2017-04-17)
PROC: 00QT0ZZ Repair Spinal Meninges, Open Approach (ICD-10-PCS; 2017-04-17)
PROC: 0ST40ZZ Resection of Lumbosacral Disc, Open Approach (ICD-10-PCS; principal; 2017-04-17 09:00)
DX: M43.17 Spondylolisthesis, lumbosacral region (principal); M48.07 Spinal stenosis, lumbosacral region; I10 Essential (primary) hypertension; E78.5 Hyperlipidemia, unspecified; H40.9 Unspecified glaucoma; N40.0 Benign prostatic hyperplasia without lower urinary tract symptoms; E87.5 Hyperkalemia; R33.9 Retention of urine, unspecified; G47.33 Obstructive sleep apnea (adult) (pediatric); K59.00 Constipation, unspecified; G97.41 Accidental puncture or laceration of dura during a procedure; Y83.9 Surgical procedure, unspecified as the cause of abnormal reaction of the patient, or of later complication, without mention of misadventure at the time of the procedure
CPT/HCPCS: 36415; 71045-TC-FY; 76000-TC-FY; 80048; 80053; 81003; 81015; 82962; 83735; 84100; 85025; 85027; 87040; 87086; 88304-TC; 93005; 93010; 94660; 94760; 97116-GP; 97161-GP; J1170; J1644